=== PATIENT | male | born 1950 | race Hispanic/Latino ===

== ENCOUNTER 2017-06-24 11:39 | Emergency (ER) | payer MEDICARE ==
[~2017-06-24] VITALS: Ht 172.7 cm; Wt 125.6 kg
[2017-06-24] MEDS ORDERED: METFORMIN HCL500 MG PO (13:04)
[2017-06-24] MEDS ORDERED: METOPROLOL SUCC50 MG PO (13:04)
[2017-06-24] MEDS ORDERED: LISINOPRIL10 MG PO (13:05)
[2017-06-24] MEDS ORDERED: GABAPENTIN300 MG PO (13:06)
[2017-06-24] MEDS ORDERED: TAMSULOSIN HCL0.4 MG PO (13:07)
[2017-06-24] MEDS ORDERED: ATORVASTATIN CA20 MG PO (13:08)
[2017-06-24] MEDS ORDERED: GLIPIZIDE5 MG PO (13:09)
[2017-06-24 16:11] VITALS: BP 138/72
== END 2017-06-24 15:35 | disposition home or self-care (01) ==
LOC: FSED 11:39
DX: M54.5 Low back pain (principal); S39.012A Strain of muscle, fascia and tendon of lower back, initial encounter; M46.1 Sacroiliitis, not elsewhere classified; E11.40 Type 2 diabetes mellitus with diabetic neuropathy, unspecified; I10 Essential (primary) hypertension
CPT/HCPCS: 72100; 99283

== ENCOUNTER 2017-07-25 10:13 | Outpatient (RCR) | payer MEDICARE ==
[~2017-07-25 10:13] MED LIST: ATORVASTATIN CA20 MG PO; GABAPENTIN300 MG PO; GLIPIZIDE5 MG PO; LISINOPRIL10 MG PO; METFORMIN HCL500 MG PO; METOPROLOL SUCC50 MG PO; TAMSULOSIN HCL0.4 MG PO
== END 2017-08-19 ==
LOC: PT 10:13
PROVIDERS: ATTEND Specialist
DX: M47.816 Spondylosis without myelopathy or radiculopathy, lumbar region (principal); M16.12 Unilateral primary osteoarthritis, left hip; M17.12 Unilateral primary osteoarthritis, left knee
CPT/HCPCS: 97139 ×2; 97163; G8978; G8979

== ENCOUNTER 2017-09-03 16:59 | Outpatient (RCR) | payer MEDICARE | END 2017-09-19 | LOC: PT 16:59 | PROVIDERS: ATTEND Specialist | DX: M16.12 Unilateral primary osteoarthritis, left hip (principal); M17.12 Unilateral primary osteoarthritis, left knee; M54.5 Low back pain; M47.896 Other spondylosis, lumbar region; M25.552 Pain in left hip; M25.652 Stiffness of left hip, not elsewhere classified; M25.562 Pain in left knee; M25.662 Stiffness of left knee, not elsewhere classified; M62.81 Muscle weakness (generalized); R26.2 Difficulty in walking, not elsewhere classified | CPT/HCPCS: 97110 ×7; 97139; G8978; G8979 ==

== ENCOUNTER 2017-10-08 16:45 | Outpatient (RCR) | payer MEDICARE | END 2017-10-19 | LOC: PT 16:45 | PROVIDERS: ATTEND Specialist | DX: M54.5 Low back pain (principal); M25.552 Pain in left hip; M25.562 Pain in left knee; M25.652 Stiffness of left hip, not elsewhere classified; M25.662 Stiffness of left knee, not elsewhere classified | CPT/HCPCS: 97110 ×5; 97139; G8978 ×2; G8979 ×2 ==

== ENCOUNTER 2017-11-04 14:25 | Inpatient (IN) | payer MEDICARE ==
[~2017-11-04] VITALS: Ht 172.7 cm; Wt 122.5 kg
[2017-11-04 15:02] LABS: BASOPHILS % 0.3 % (0.0-1.0); EOSINOPHILS # (AUTO) 0.2 (0.0-0.4); EOSINOPHILS % 1.8 % (0.0-6.0); HEMOGLOBIN 12.9 g/dL (14.0-18.0); LYMPHOCYTES # (AUTO) 2.8 (1.0-3.2); LYMPHOCYTES % 31.5 % (18.0-39.1); MEAN CORPUSCULAR HEMOGLOBIN 30.8 pg (28-32); MEAN CORPUSCULAR HGB CONC 34.9 g/dL (31-35); MEAN CORPUSCULAR VOLUME 88.3 fL (81-99); MONOCYTES # (AUTO) 0.8 (0.2-0.8); MONOCYTES % 9.4 % (4.4-11.3); NEUTROPHILS # (AUTO) 5.1 (2.1-6.9); NEUTROPHILS % 56.7 % (38.7-80.0); PLATELET COUNT 227 x10e3/uL (140-360); RED BLOOD COUNT 4.19 x10e6/uL (4.3-5.7); RED CELL DISTRIBUTION WIDTH 12.8 % (11.7-14.4)
[2017-11-04 15:09] LABS: INR 1.04; PROTHROMBIN TIME 12.8 seconds (11.9-14.5)
[2017-11-04 15:10] LABS: PARTIAL THROMBOPLASTIN TIME 26.9 seconds (23.8-35.5)
[2017-11-04 15:16] LABS: ALANINE AMINOTRANSFERASE 37 IU/L (0-55); ALBUMIN 3.3 g/dL (3.5-5.0); ALBUMIN/GLOBULIN RATIO 0.9 (0.8-2.0); ALKALINE PHOSPHATASE 101 IU/L (40-150); ANION GAP 17.1 mmol/L (8-16); BLOOD UREA NITROGEN 30 mg/dL (7-26); BUN/CREATININE RATIO 25 (6-25); CALCIUM 9.4 mg/dL (8.4-10.2); CARBON DIOXIDE 23 mmol/L (22-29); CHLORIDE 104 mmol/L (98-107); CREATINE KINASE 221 IU/L (30-200); EST GLOMERULAR FILTRATION RATE > 60 ML/MIN (60-); GLUCOSE 213 mg/dL (74-118); POTASSIUM 5.1 mmol/L (3.5-5.1); SODIUM 139 mmol/L (136-145)
--- NOTE | 2017-11-04 17:07 | Diagnostic Imaging Report ---
History:Fall Comparison studies: None Technique: Axial images were obtained from the skull base to the vertex. Coronal and sagittal images reconstructed from the axial data. Intravenous contrast: None Findings: Scalp/skull: No abnormalities. Extra-axial spaces: No masses. No fluid collections. Brain sulci: Mildly prominent. Ventricles: Mild compensatory dilatation. No hydrocephalus. Parenchyma: Subtle hypodensities in the supratentorial white matter are small vessel ischemic changes. No masses, hemorrhage, acute or chronic cortical vascular insults. Sellar/suprasellar region: No abnormalities. Craniocervical junction: Patent foramen magnum. No Chiari one malformation. Incidental findings: Atherosclerotic calcifications in the carotid siphons . Impression: No acute abnormalities. Chronic findings: 1. Mild generalized volume loss. 2. Mild supratentorial white matter small vessel ischemic changes. Signed by: Dr. Arsalan Rojas M.D. on 11/04/2017 5:04 PM
--- NOTE | 2017-11-04 17:15 | Diagnostic Imaging Report ---
History:Fall Comparison studies: None Technique: Axial images were obtained through the maxillofacial region. Coronal and sagittal images reconstructed from the axial data. Intravenous contrast: None Findings: Soft tissues: And approximately 2.8 cm homogeneous, noncalcified, nonnecrotic right jugulodigastric lymph node is nonspecific and cannot be further evaluated on this noncontrast maxillofacial CT. No additional radiographically significant adenopathy. Bones: No fractures or bone abnormalities. Orbits: Globes: Intact Extra or intraconal abnormalities: None. Paranasal sinuses: Peripheral mucosal thickening in the maxillary sinuses. Otherwise clear Additional findings: Patient status post anterior cervical fusion from C3 through C5. Bone grafts are seen in the partially fused C3-4 and C4-5 disc spaces. Incidental periodontal disease, activity to be determined clinically IMPRESSION: 1. No acute maxillofacial abnormalities. 2. Specifically, no fractures. 3. Recommend a CT of the neck with contrast to adequately evaluate would appears to be an enlarged right jugulodigastric lymph node which measures 2.8 cm in transverse diameter. 4. Patient status post anterior cervical fusion from C3 to C5. Signed by: Dr. Arsalan Rojas M.D. on 11/04/2017 5:12 PM
[2017-11-04] MEDS ORDERED: ONDANSETRON HCL INJ 2 MG/ML VIAL IV PRN (19:00)
[2017-11-04] MEDS ORDERED: SODIUM CHLORIDE 0.9% 1000ML 1,000 ML ONE (19:11)
[2017-11-04] MEDS ORDERED: ASPIRIN 81 MG CHEW TAB PO ONE (19:15)
[2017-11-04] MEDS: SODIUM CHLORIDE 0.9% 1000ML 1,000 ML IV SCH (19:19)
--- NOTE | 2017-11-04 19:56 | History and Physical ---
CLINICAL HISTORY: This is a 67-year-old white man, a patient of Dr. Naveen Samaniego, seen in the emergency room at [facility] because of fall, syncope, persistent diplopia and vertigo. According to the patient, 3 years ago he had head trauma, fracturing his C-spine, requiring surgery at [facility]. Since that time, he has not been able to move his left arm properly. He attributes this to not having had any rehabilitation since he had no insurance at that time. Two years ago, he had an episode of sudden left-sided paralysis lasting for approximately 6 hours, spontaneously resolved. He did not go to the emergency room. One year ago, he had the same thing happen on the right side. This time, his grandson took him to [facility] where workup was negative. He was dismissed. He has never had syncope in the past. Five days ago, when he got out of bed in the morning, he suddenly became unconscious and hit the ground, having slight bruising of the left forehead. His grandson came to visit with him at 1 p.m. (5 hours later) and found him unconscious. After waking him up, he was able to walk properly. He did not go to the emergency room. However, he said since that time he has had diplopia and vertigo. No chest pains. No palpitations. Since his diplopia did not improve, he decided to come to the emergency room. PAST MEDICAL HISTORY: Remarkable for diabetes, hypertension, hyperlipidemia, benign prostatic hypertrophy. MEDICATIONS AT HOME: Include: 1. Atorvastatin 40 mg p.o. daily. 2. Gabapentin 300 mg p.o. t.i.d. 3. Glipizide 5 mg p.o. daily. 4. Lisinopril 10 mg p.o. daily. 5. Metformin 500 mg p.o. b.i.d. 6. Metoprolol succinate 50 mg p.o. daily. 7. Tamsulosin 0.4 mg p.o. daily. FAMILY HISTORY: Remarkable for father who had stomach cancer. Mother had end-stage renal disease. Brother had from motor vehicle accident. Another brother after back surgery and was in a wheelchair for years, possibly cardiac . PERSONAL AND SOCIAL HISTORY: He was a cigarette smoker since age 19. Stopped smoking approximately 15 years ago. He was a heavy alcohol user, started at age 19, drinking 1 case of beer per day, but stopped drinking approximately 15 years ago. 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 REVIEW OF SYSTEMS: Noncontributory. SURGERIES: Only the cervical spine. PHYSICAL EXAMINATION VITAL SIGNS: Blood pressure 115/67. Pulse is 87. Respirations 20. CARDIAC: Jugular veins are not distended. S1, S2 were regular with occasional ectopy. LUNGS: Clear. ABDOMEN: Soft. Bowel sounds are present. EXTREMITIES: No cyanosis, clubbing or edema. LABORATORY STUDIES: Electrocardiogram shows sinus rhythm, poor R-wave progression, cannot exclude old anterior wall myocardial infarction. The CT scan of the head showed volume loss, supratentorial white matter small vessel disease. CT of the face: No acute findings. There was lymph node present up to 2.8 cm in the right jugulodigastric area. White count 8000, hemoglobin 12.9, platelet count 227,000. Electrolytes are negative. BUN 30, creatinine 1.2. CK 221, CK-MB 11.5. Troponin is normal at 0.006. Albumin 3.3. INR is 1.04. IMPRESSION 1. Syncope of undetermined etiology. Consider cardiac arrhythmia since the patient does have premature ventricular contractions on monitoring. Consider seizure disorder. 2. Transient ischemic attack 2 years ago and 1 year ago. The first one with left-sided weakness, the 2nd one with right-sided weakness. Workup in the emergency room the 2nd time was negative. The 1st time was not worked up. 3. History of cervical spine fracture requiring surgery 3 years ago at [facility] with persistent left arm weakness or limitation. 4. Diplopia and vertigo. Consider 8th nerve and 6th nerve. 5. Abnormal electrocardiogram showing possible old anterior wall myocardial infarction. 6. Enlarged left neck lymph node. 7. Elevated creatine kinase and creatine kinase myocardial band but with normal troponin. 8. Diabetes. 9. Hypertension. 10. Hyperlipidemia. 11. Benign prostatic hypertrophy. 12. Neuropathy. RECOMMENDATIONS: Neurology consultation. MRI scan of cervical spine. MRI of the head. Consider CT of the head. Echocardiogram and Doppler scan of carotid. Future workup concerning his lymph nodes. May need EP study. This patient has history of heavy alcohol usage. Consider alcoholic cardiomyopathy. Job#: [id number] cc:MD KEVON SHIELDS MD
[2017-11-04 21:00] VITALS: BP 161/69
[2017-11-04] MEDS ORDERED: ATORVASTATIN 20 MG TAB PO PRN (21:00)
[2017-11-04] MEDS ORDERED: TRESIBA (23:20)
[2017-11-04] MEDS: GABAPENTIN 300 MG CAP PO SCH (23:24)
[2017-11-05] VITALS (9 sets, daily range): BP systolic 127–168; BP diastolic 61–73
[2017-11-05 00:56] LABS: CREATINE KINASE MB 9.5 ng/mL (0-5.0)
[2017-11-05] MEDS: SODIUM CHLORIDE 0.9% 1000ML 1,000 ML IV SCH ×3 (03:51→18:55)
[2017-11-05 04:35] LABS: BASOPHILS % 0.3 % (0.0-1.0); EOSINOPHILS # (AUTO) 0.3 (0.0-0.4); EOSINOPHILS % 3.6 % (0.0-6.0); HEMATOCRIT 35.4 % (38.2-49.6); HEMOGLOBIN 12.1 g/dL (14.0-18.0); LYMPHOCYTES # (AUTO) 3.5 (1.0-3.2); LYMPHOCYTES % 38.5 % (18.0-39.1); MEAN CORPUSCULAR HEMOGLOBIN 30.9 pg (28-32); MEAN CORPUSCULAR HGB CONC 34.2 g/dL (31-35); MEAN CORPUSCULAR VOLUME 90.5 fL (81-99); MONOCYTES # (AUTO) 0.8 (0.2-0.8); NEUTROPHILS # (AUTO) 4.4 (2.1-6.9); NEUTROPHILS % 48.4 % (38.7-80.0); PLATELET COUNT 196 x10e3/uL (140-360); RED BLOOD COUNT 3.91 x10e6/uL (4.3-5.7); RED CELL DISTRIBUTION WIDTH 12.8 % (11.7-14.4)
[2017-11-05 04:55] LABS: ANION GAP 12.7 mmol/L (8-16); BLOOD UREA NITROGEN 24 mg/dL (7-26); BUN/CREATININE RATIO 29 (6-25); CALCIUM 9.4 mg/dL (8.4-10.2); CARBON DIOXIDE 26 mmol/L (22-29); CHLORIDE 108 mmol/L (98-107); CHOL/HDL RATIO 4.3 (3.9-4.7); CHOLESTEROL 119 MD/DL (0-199); CREATININE, SERUM 0.84 mg/dL (0.72-1.25); EST GLOMERULAR FILTRATION RATE > 60 ML/MIN (60-); GLUCOSE 115 mg/dL (74-118); HDL CHOLESTEROL 28 MG/DL (40-60); LDL CHOLESTEROL 66 MG/DL (60-130); POTASSIUM 4.7 mmol/L (3.5-5.1); SODIUM 142 mmol/L (136-145); TRIGLYCERIDES 126 MG/DL (0-149)
--- NOTE | 2017-11-05 07:25 | Diagnostic Imaging Report ---
Exam: Intracranial CTA History : Syncope. Comparison studies:None Technique: Axial images were obtained from the skull base to the vertex. Coronal and sagittal images reconstructed from the axial data. Intravenous contrast: 100 cc of [id number] Findings: Internal carotid arteries: Calcified atherosclerosis in the bilateral cavernous and paraophthalmic segments with mild stenosis in the left cavernous and paraophthalmic segments. Middle cerebral arteries: Patent, no abnormalities in the M1 and M2 segments. Anterior cerebral arteries: Patent, no abnormalities in the A1 and A2 segments. Vertebral arteries: Patent, no abnormalities. Basilar artery: Patent, no abnormalities. Posterior cerebral arteries: Patent, no abnormalities. The PICA origins are not well visualized and may lie outside imaged [id number]. No aneurysm or vascular malformation identified. Anatomical variants: Anterior communicating artery :Not well visualized. Posterior communicating arteries: Nonvisualized. Vertebral arteries: Codominant. Incidental findings: Nonspecific inflammatory mucosal thickening in the right maxillary sinus. Periapical lucency at the underlying right first maxillary molar raises the possibility for odontogenic source of sinus inflammation. Additional periapical lucency at the right medial maxillary incisor. IMPRESSION: 1. Calcified atherosclerosis in the carotid siphons with mild stenosis in the left cavernous and paraophthalmic ICA segment. 2. No other intracranial arterial abnormalities. Signed by: Dr. Jose Ocampo M.D. on 11/05/2017 7:22 AM
[2017-11-05 08:08] LABS: CREATINE KINASE MB 11.9 ng/mL (0-5.0)
[2017-11-05] MEDS: METOPROLOL SUCCINATE 50 MG TAB XL PO SCH (08:40)
[2017-11-05] MEDS: GABAPENTIN 300 MG CAP PO SCH ×3 (08:40→21:16)
[2017-11-05] MEDS: ASPIRIN 81 MG ENTERIC COATED PO SCH (08:40)
[2017-11-05] MEDS: GLIPIZIDE 5 MG TAB PO SCH (08:40)
[2017-11-05] MEDS: METFORMIN HCL 500 MG TAB PO SCH ×2 (08:40→16:00)
[2017-11-05] MEDS: LISINOPRIL 10 MG TAB PO SCH (08:40)
[2017-11-05] MEDS: TAMSULOSIN HCL 0.4 MG CAP PO SCH (08:40)
[2017-11-05 10:11] LABS: % IRON SATURATION 34 % (15-50); IRON 103 ug/dL (65-175); TOTAL IRON BINDING CAPACITY 305 ug/dL (261-478); TRANSFERRIN 218 mg/dL (174-364)
--- NOTE | 2017-11-05 10:14 | Cardiology Report ---
DATE OF STUDY: November 05, 2017 ECHOCARDIOGRAM M-MODE: Top normal left atrial size. Mild left ventricular hypertrophy. Top normal aortic root size. Normal contractility. Ejection fraction is approximately 55%. Mitral, aortic and tricuspid valves grossly normal. There is no pericardial effusion. SECTOR SCAN: Top normal left atrial size. Borderline dilated aortic root measuring 3.8 cm. Left ventricular hypertrophy with ejection fraction of approximately 55%. No segmental wall motion abnormalities. No intracardiac thrombi or masses. Mitral annulus slightly thickened. Aortic valve is normal. Tricuspid valve is normal. There is no pericardial effusion. CARDIAC DOPPLER STUDY WITH COLOR: Trace mitral and tricuspid regurgitation. CONCLUSIONS 1. Top normal aortic root size measuring 3.8 cm with without aortic regurgitation. 2. No evidence of intracardiac thrombi or masses. 3. Left ventricular hypertrophy with ejection fraction of 55%. 4. Trace mitral regurgitation with sclerosis of mitral valve annulus and top normal left atrial size. 5. Trace tricuspid regurgitation. Job#: [id number] RI cc:FAIZA CEJA MD
--- NOTE | 2017-11-05 14:41 | Diagnostic Imaging Report ---
Exam: Brain MRI without IV contrast History: Syncope head CT 11/04/2017. Comparison studies: None Technique: Sagittal and axial T2 FS, axial DWI, axial T2*GRE, axial T1 FLAIR and axial coronal T2 FLAIR. Intravenous contrast: None Findings: Several pulse sequences are somewhat limited by artifacts related to patient motion. Scalp: Normal in signal. No masses. Bone marrow: Normal in signal intensity. Brain sulci: Comment prominent. Ventricles: Mild compensatory dilatation. No hydrocephalus. Extra axial spaces: No mass, no fluid collection. Parenchyma: Mass, hemorrhage or acute ischemia. A few scattered T2 FLAIR appearance foci in the supratentorial white matter are nonspecific most compatible with chronic microvascular ischemic changes. There is a small chronic cortical-subcortical insult in the left occipital lobe centered within the cuneus gyrus in the left [employer] territory. Suprasellar region: No abnormalities. Craniocervical junction: Patent foramen magnum. No Chiari malformation. Vessels: Normal flow-voids in the arteries and sinuses. Incidental findings: Mild inflammatory mucosal thickening in the right maxillary sinus. Mild nonspecific T2 hyperintense hyperintense reactive changes at the left greater than right mastoid tip. IMPRESSION: 1. No acute ischemia or other acute intracranial abnormalities. 2. Mild generalized volume loss. 3. Small chronic left occipital insult. 4. Mild chronic microvascular ischemic changes. Signed by: Dr. Jose Ocampo M.D. on 11/05/2017 2:38 PM
--- NOTE | 2017-11-05 17:47 | Diagnostic Imaging Report ---
History: Syncope Comparison studies: None Technique: Sagittal T1, T2 and IR, axial T2 and axial gradient echo Intravenous contrast: None Findings: Study is slightly suboptimal due to motion artifacts. In spite of the motion artifacts: Alignment: Normal lordosis. No scoliosis. Cervicomedullary junction: No abnormalities. Patent foramen magnum. Soft tissues: No T2 hyperintense inflammatory changes. 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 Spinal cord: Normal in size and signal from the foramen magnum through C2-C3. Increased T2 signal in the dorsal and lateral aspects of the mildly atrophic cord from C3 through C6, due to the degenerative changes described below, are consistent with chronic gliosis. Postsurgical changes: Patient status post anterior cervical fusion from C3 to C5. Bone grafts are in place in both disc spaces but this is better visualized on the maxillofacial CT on 11/04/2017. Vertebrae: Normal in height and signal intensity. No fractures, infection or neoplasm. Degenerative changes: C2-C3: Mildly degenerated disc. Mild bilateral foraminal stenosis due to facet and uncovertebral arthrosis. A disc osteophyte complex flattens the cord and result in mild spinal canal stenosis. No disc herniation C3-C4: The disc is partially fused Mild bilateral foraminal stenosis due to facet and uncovertebral arthrosis. A disc osteophyte complex flattening the spinal cord and results in moderate spinal canal stenosis. T2 hyperintense foci in the dorsal cord are consistent with chronic gliosis. No disc herniation. C4-C5: The disc is partially fused Moderate bilateral foraminal stenosis is due to uncoarthrosis. A disc osteophyte complex flattens the spinal cord and results in mild spinal canal stenosis. T2 hyperintense foci in the dorsal aspect of the cord are consistent with gliosis. No disc herniation C5-C6: Mildly degenerated disc. Moderate bilateral foraminal stenosis due to facet and uncovertebral arthrosis. Severe spinal canal stenosis due to a disc osteophyte complex. T2 hyperintense foci in the dorsal and lateral cord are consistent with stenosis. No disc herniation. C6-C7: Mildly degenerated disc. Mild spinal canal stenosis due to a disc osteophyte complex. Mild left foraminal stenosis at due to uncoarthrosis. Patent right foramen C7-T1: Mildly degenerated disc. Moderate bilateral facet arthrosis. Patent spinal canal and foramina. IMPRESSION: 1. Patient status post anterior cervical fusion from C3 to C6. Hardware in place. Bone graft in the intervening disc spaces are better visualized on the maxillofacial CT on 11/04/2017. 2. Degenerative spinal canal stenosis is moderate at C3-4, mild at C4-5 but severe at C5-6. Increased T2 signal in the dorsolateral aspect of the mildly atrophic cord are consistent with chronic gliosis. 3. Foraminal stenosis from C2 -C7 is worst bilaterally at C4-5 and C5-6 due to facet and uncovertebral arthrosis. 4. No disc herniations. Signed by: Dr. Arsalan Rojas M.D. on 11/05/2017 5:43 PM
[2017-11-05 18:19] LABS: CREATINE KINASE MB 14.2 ng/mL (0-5.0)
[2017-11-05] MEDS ORDERED: SODIUM CHLORIDE 0.9% 50ML 50 ML ONE (22:37)
[2017-11-05] MEDS ORDERED: IOPAMIDOL 370 MG/ML 200 ML INFUS..BTL INJ ONE (22:37)
[2017-11-06] VITALS (8 sets, daily range): BP systolic 124–143; BP diastolic 60–78
[2017-11-06] MEDS: SODIUM CHLORIDE 0.9% 1000ML 1,000 ML IV SCH ×3 (02:55→17:51)
[2017-11-06] MEDS: MUPIROCIN 2% OINT 22 GM TUBE TOP SCH (09:00)
[2017-11-06] MEDS: TAMSULOSIN HCL 0.4 MG CAP PO SCH (09:16)
[2017-11-06] MEDS: METFORMIN HCL 500 MG TAB PO SCH ×2 (09:16→16:52)
[2017-11-06] MEDS: GLIPIZIDE 5 MG TAB PO SCH (09:16)
[2017-11-06] MEDS: ASPIRIN 81 MG ENTERIC COATED PO SCH (09:16)
[2017-11-06] MEDS: GABAPENTIN 300 MG CAP PO SCH ×3 (09:16→21:29)
[2017-11-06] MEDS: LISINOPRIL 10 MG TAB PO SCH (09:16)
[2017-11-06] MEDS: METOPROLOL SUCCINATE 50 MG TAB XL PO SCH (09:17)
--- NOTE | 2017-11-06 09:56 | Consultation ---
DATE OF CONSULTATION: November 04, 2017 NEUROLOGY CONSULTATION HISTORY OF PRESENT ILLNESS: Mr. Ma is a 67-year-old ghuqc-kjyq-lrelfpec man with past medical history significant for hypertension, hyperlipidemia, diabetes mellitus type 2, and a previously undiagnosed left occipital stroke, admitted to [facility] on November 04, 2017, with multiple symptoms. Approximately one week prior to admission, the patient awoke at approximately 0730. As he was standing from his bed, he abruptly lost consciousness and fell to the floor. Prior to the fall, Mr. Ma does not report chest pain or tightness, an irregular heartbeat, shortness of breath, or dizziness. Mr. Ma's next memory is of his grandson waking him and helping him to stand at approximately 1330 later the same day. When he regained consciousness, the patient was not aware of any bruises or abrasions. His muscles did not ache. He does endorse a headache. He does not report tongue biting, bladder/bowel incontinence, confusion, or tiredness after the fall. Shortly after the fall, the patient noted dizziness, which is further described as a spinning sensation. This spinning sensation occurs intermittently and lasts for approximately 60 to 90 seconds. The vertiginous sensation is exacerbated by turning his head in either direction. There is no nausea, vomiting, or other symptoms associated with the dizziness. Shortly after the fall, Mr. Ma noted binocular diplopia which is constant. Lastly, he noticed a headache which is further described as a generalized mild aching pain. Mr. Ma waited several days before presenting to the emergency center at [facility] to see if his symptoms would improve. Mr. Ma reports his dizziness is mildly improved. His headaches are moderately improved. The diplopia is unchanged. The patient does not endorse a prior stroke. He does not report a personal history of febrile seizures or other seizures. There is no known family history of seizures. Mr. Ma does not endorse prior head trauma or central nervous system infection. After his symptoms persisted for approximately 1 week, the patient presented to the Emergency Center at [facility] on the afternoon of November 04, 2017, for further evaluation. Upon arrival in the emergency center, the patient was afebrile with a blood pressure of 115/67 mmHg and a pulse of 87 beats per minute. His neurological examination was documented as being nonfocal. A CT of the brain without contrast was performed and did not show evidence of recent large territorial ischemia or hemorrhage. Mr. Ma was admitted to [facility] under observation status for further evaluation and treatment. REVIEW OF SYSTEMS: Vertigo, binocular diplopia, headache, status post fall. Otherwise, the 12-point review of systems is negative. PAST MEDICAL HISTORY: Hypertension, hyperlipidemia, diabetes mellitus type 2. PAST SURGICAL HISTORY: Cardiac catheterization, surgical repair of cervical fracture (4 levels). PAST HOSPITALIZATIONS: Surgeries/procedures as listed, chest pain. FAMILY HISTORY: The patient's paternal and maternal grandparents are . Their medical histories are unknown. The patient's father is from stomach cancer. He had a history of diabetes mellitus as well. Mr. Ma's mother is from end-stage renal disease. She had a history of diabetes mellitus as well. Mr. Ma has five sisters, all of whom are living. One sister has diabetes mellitus. A second sister has Parkinson's disease. The remaining three sisters are alcoholics. Mr. Ma has one brother who is from a motor vehicle accident. A second brother is from complications of hypertension and diabetes mellitus. A third brother is alive. He has end-stage renal disease and is on hemodialysis. Mr. Ma has five children, all of whom are living. Both of his sons have diabetes mellitus. One daughter has diabetes mellitus. The remaining two daughters are healthy. SOCIAL HISTORY: Mr. Ma is . He completed school through the 10th grade, then later obtained his GED. The patient does endorse a prior history of tobacco use, but quit smoking cigarettes approximately 15 years ago. He does not report current or prior alcohol or recreational drug use. HOME MEDICATIONS 1. Atorvastatin 40 mg by mouth at bedtime daily. 2. Gabapentin 300 mg by mouth three times daily. 3. Glipizide 5 mg by mouth daily. 4. Lisinopril 20 mg by mouth daily. 5. Metformin 1000 mg by mouth twice daily. 6. Metoprolol 50 mg by mouth daily. 7. Tamsulosin 0.4 mg by mouth daily. 8. Tresiba 80 units at bedtime daily. ALLERGIES: NO KNOWN DRUG ALLERGIES. NO KNOWN FOOD ALLERGIES. NO KNOWN ALLERGIES TO LATEX. NO KNOWN ALLERGIES TO IODINE OR OTHER CONTRAST MATERIALS. PHYSICAL EXAMINATION VITAL SIGNS: Height 68 inches, weight 266 pounds, BMI 40.5 kg per meter squared. Blood pressure 135/66 mmHg. Pulse 70 beats per minute. Respiratory rate 18 breaths per minute. Oxygen saturation 98% on room air. GENERAL: The patient is awake and alert, mildly distressed secondary to diplopia. Morbidly obese. HEENT: Normocephalic, atraumatic. Pupils are pinpoint. Moist mucous membranes. NECK: Supple. No appreciable thyromegaly. No appreciable carotid bruits. CARDIOVASCULAR: S1, S2, regular rate and rhythm. No murmurs, rubs, or gallops. RESPIRATORY: Clear to auscultation bilaterally. No wheezes, rhonchi, or rales. EXTREMITIES: The skin is warm and dry. No clubbing, cyanosis, or edema. The posterior tibial and dorsalis pedis pulses are 1+ and symmetric. There is limited range of motion of the right shoulder. SKIN: Venostasis ulcerations over the forelegs. NEUROLOGIC EXAMINATION MEMORY/ATTENTION: The patient is awake and alert, oriented to person, place, time, and situation. CRANIAL NERVES: Cranial nerve I--not tested. Cranial nerves II, III, IV, and --pupils are pinpoint. Extraocular movements are intact except as follows: Partial left cranial nerve palsy resulting in very mild esotropia of the left eye at rest. No nystagmus. Cranial nerve V--sensation to light touch and pinprick is diminished in a non anatomical distribution. Strength of the temporalis and masseter muscles is within normal limits. Cranial nerve VII--the face is symmetric as are all facial movements. Strength is within normal limits. Cranial nerve VIII--hearing is diminished to finger rub bilaterally. Cranial nerves IX, X--the soft palate elevates equally and symmetrically. Cranial nerve XI--normal strength of the bilateral sternocleidomastoid and trapezius muscles. Cranial nerve XII--the tongue protrudes midline and moves symmetrically from side to side. STRENGTH: Bulk is normal. Strength is 5/5 in the bilateral deltoids, biceps, triceps, wrist flexors and extensors, finger flexors and extensors, intrinsic hand muscles, hip flexors, knee flexors and extensors, ankle dorsiflexion and plantarflexion, and intrinsic foot muscles. Tone is normal. DTRs: Deep tendon reflexes are 1+ and symmetric at the triceps, biceps, and brachioradialis. Deep tendon reflexes are absent and symmetric at the patellas and Achilles. Plantar responses are flexor bilaterally. SENSATION: Sensation is intact to light touch and pinprick in both arms and both legs. CEREBELLAR: Fgrttc-awwe-uduzsi and heel-ellis movements are intact without dysmetria or other impairment. GAIT: Gait deferred. SPEECH: Spontaneous speech is normal without appreciable dysarthria or aphasia. Repetition is intact. INVOLUNTARY MOVEMENTS: None. PRONATOR DRIFT: None. LABORATORY DATA: Sodium 142, potassium 4.7, chloride 108, carbon dioxide 26, anion gap 12.7, BUN 24, creatinine 0.84, estimated GFR greater than 60. BUN to creatinine ratio 29. Glucose 115, calcium 9.4. From November 04, 2017, total bilirubin 0.3, AST 33, ALT 37, alkaline phosphatase 101, total protein 6.9, albumin 3.3, globulin 3.6, albumin to globulin ratio 0.9. Creatinine kinase 221, 239, 360. CK-MB 11.50, 9.50, 11.90. Troponin I 0.006, 0.009, and 0.015. Iron 103, TIBC 305, percent saturation 34, transferrin 218. Total cholesterol 119, triglycerides 126, LDL cholesterol 66, HDL cholesterol 28. The CBC with differential and platelets reveals a white blood cell count of 9.10 with a normal differential. The hemoglobin and hematocrit are 12.1 and 35.4, respectively. The platelet count is 196. PT 12.8, INR 1.04, PTT 26.9. DIAGNOSTIC STUDIES 1. EKG 11/04/2017: Normal sinus rhythm at 89 beats per minute. 2. Face CT 11/04/2017 1. No acute maxillofacial abnormalities. 2. Specifically, no fractures. 3. Recommended CT of the neck with contrast to adequately evaluate what appears to be an enlarged right jugulodigastric lymph node which measures 2.8 cm in transverse diameter. 4. Patient is status post anterior cervical fusion from C3 to C5. 5. CT of the brain without contrast 11/04/2017: On my review, there is no evidence of recent large territorial ischemia, hemorrhage, mass, or mass effect. There is mild diffuse cerebral atrophy. There are findings compatible with mild to moderate chronic small vessel ischemic disease. 6. MRI of the brain without contrast 11/05/2017: On my review, there is no evidence of recent large territorial ischemia, hemorrhage, mass, or mass effect. There is a small chronic left occipital stroke with cortical involvement. There is mild diffuse cerebral atrophy. There are scattered nonspecific T2/flair hyperintensities in the deep white matter compatible with mild chronic small vessel ischemic disease. 7. Echocardiogram 11/05/2017: Ejection fraction 50% to 55%. Concentric left ventricular hypertrophy. Left atrial enlargement. Trace mitral and tricuspid regurgitation. The mitral valve is thickened. 8. Bilateral carotid artery ultrasound with Doppler 11/05/2017: There is no significant atherosclerosis in either carotid system. There does not appear to be any blood flow of the right vertebral artery. 9. CTA of the head 11/05/2017: Calcified atherosclerosis in the carotid siphons with mild stenosis in the left cavernous and paraophthalmic ICA segment. No other intracranial arterial abnormalities. Specifically, there is blood flow seen in both vertebral arteries. ASSESSMENT AND PLAN: Mr. Ma is a 67-year-old ohwrr-vefy-irewrofy man with multiple vascular risk factors admitted to [facility] on November 04, 2017, with multiple symptoms as described in the history of present illness. The patient's neurological examination is significant for a partial left cranial nerve palsy resulting in very mild esotropia of the left eye at rest. Otherwise, his neurological examination is nonfocal. Patient's laboratory data and other diagnostic studies have been reviewed and are documented above. The greatest concern regarding this patient is the etiology of his loss of consciousness and subsequent amnesia over a period of approximately 5 hours. It is possible the patient experienced a syncopal event and hit his head as he fell to the floor. There may be loss of consciousness of variable duration seen with a concussion. The occurrence of a concussion may account for the patient's persistent symptoms of intermittent vertigo and headaches as these are common symptoms of postconcussion syndrome. Another possibility is the patient experienced a generalized tonic-clonic seizure. The postictal phase of a seizure may be characterized by severe tiredness and confusion. A person may sleep for several hours following a seizure. This person would not having memory for the time immediately following the seizure as well. As detailed in the neurological examination, Mr. Ma has a partial left cranial nerve palsy, probably secondary to diabetes mellitus. This is the probable etiology of his binocular diplopia. RECOMMENDATIONS 1. Routine EEG to evaluate for abnormal electrocortical activity. 2. A hemoglobin A1c will be ordered to determine how well controlled the patient's diabetes is at present. 3. Defer treatment of the remaining medical comorbidities to the primary and other services following this patient. Thank you for this consultation. I will continue to follow this patient while he remains in the hospital. TIME SPENT: 70 minutes. Job#: [id number] ALEXANDRO BERNSTEIN
--- NOTE | 2017-11-06 10:53 | Cardiology Report ---
DATE OF STUDY: DOPPLER SCAN OF CAROTIDS Left carotid artery shows normal velocity with left vertebral flow in the normal direction. Right carotid artery shows nonvisualized right vertebral artery. CONCLUSION 1. Nonvisualized right vertebral artery consistent with occlusion. 2. No high-grade stenosis elsewhere detected bilaterally. 3. Left vertebral flow appears to be in normal direction. Job#: [id number] RI cc:MD KEVON SHIELDS MD
[2017-11-06] MEDS: MORPHINE SULFATE 2 MG/ML SYR IV PRN ×3 (13:15→23:02)
--- NOTE | 2017-11-06 17:06 | Consultation ---
DATE OF CONSULTATION: November 06, 2017 REASON FOR CONSULTATION: Cervical spinal stenosis. The patient is a 67-year-old man who underwent C3-4 and C4-5 anterior cervical diskectomy and fusion by another surgeon in [facility] about 2 years ago for treatment of severe cervical cord compression. Apparently he did not have insurance at that time and did not have any postoperative rehabilitation. He has continued to have a significant gait disturbance, which has become substantially worse over the past 6 months. He has resorted to using a walker for the past 6 months and falls frequently. He has previously attributed this problem to bilateral hip osteoarthritis. About a month ago, he had some physical therapy without much benefit. He recently fell again and was brought the emergency room and underwent a thorough evaluation of his cardiac and neurological status, which included an MRI of the brain and the cervical spine. His brain MRI is okay. The cervical spine MRI reveals evidence of previous decompression at C3-4 and C4-5 with evidence of chronic cord injury and myelomalacia and cord atrophy in that region. In addition, the patient has severe spinal stenosis with flattening of the cord at C5-6 below the level of his previous fusion. He also has mild to moderate stenosis at C2-3 above the level of his previous fusion. PHYSICAL EXAMINATION: The patient is alert and oriented times 3. Cranial nerves are intact. Motor strength is full and symmetric in the upper extremities except for bilateral hot braider weakness noted as 4/5. He is able to stand and walk a few steps with his walker, visibly weaker on the right leg than the left leg. Motor tone is increased in the lower extremities, but deep tendon reflexes are absent throughout, likely due to his diabetes mellitus. Plantar responses are equivocal on the right and flexor on the left. IMPRESSION: Severe spinal stenosis with myelopathy at C5-6 below the level of previous C3-5 fusion where he has myelomalacia. I recommend C5-6 anterior cervical diskectomy, allograft fusion and plating. During that operation, I will explore his previous fusion and may remove his previous plate. The risks and benefits of surgery were explained to the patient in great detail. Specifically, I told him that the main reason for the surgery is to halt his continuing deterioration. At this point, it is unclear how much of his lost motor function and balance he will regain because of the existing myelomalacia in the cord. He understands and accepts this. The risks of infection, bleeding, spinal cord injury, cervical spine fluid leakage, graft nonfusion, hardware failure, recurrent laryngeal nerve palsy and persistent pain, numbness and weakness were explained. He fully understands all these issues and gives informed consent to proceed with surgery. Job#: [id number]
--- NOTE | 2017-11-06 17:26 | Diagnostic Imaging Report ---
Cervical Spine, 3 views HISTORY: Pain. Syncope. COMPARISON: MR cervical spine 11/05/2017. FINDINGS: Limited sensitivity for detection of subtle fractures and ligamentous abnormalities. On the lateral view, the cervical spine is visualized from the skull base to C6. The alignment is normal. Anterior plate and screw fixation from C3, C4, C5 with intervertebral disc prosthesis. No acute displaced fracture involving the visualized cervical spine. Disc Spaces and Uncovertebral Joints: Mild disc space narrowing at C5-C6. Facets: Diffuse mild facet arthrosis. IMPRESSION: 1. Stable anterior fusion from C3 through C5. 2. Mild degenerative changes at C5-C6. Signed by: Dr. Rashaun Guillermo M.D. on 11/06/2017 5:22 PM
--- NOTE | 2017-11-06 18:49 | Diagnostic Imaging Report ---
History: Assess fusion Comparison studies: None Technique: Axial images were obtained through the cervical region from the skull base to inferior C7 Coronal and sagittal images reconstructed from the axial data.. Intravenous contrast: None Findings: Fractures: None. Soft tissues: No gross abnormalities. Atlantoaxial articulation: Intact. Alignment: Normal lordosis. No scoliosis. Cervicomedullary junction: No abnormalities. The foramen magnum is patent. Postsurgical changes. Patient status post anterior cervical fusion from C3 to C5. Bone graft are in place in the intervening vertebral bodies. The disc spaces are still visualized. Vertebrae: No infection or neoplasm. Degenerative changes: Mildly degenerated discs at C2-3, C5-6 and C6-7. Degenerative spinal canal stenosis is better evaluated on the cervical spine MRI. Foraminal stenosis from C2 -C7 is worst on the right at C4-5 to facet and uncovertebral arthrosis. Moderate bilateral facet arthrosis at from C2 to T1. IMPRESSION: 1. No acute abnormalities. 2. Patient status post anterior cervical fusion from C3 to C5. Hardware in place. No loosening or failure. 3. Cannot adequately evaluate the spinal canal due to artifacts. Refer to the MRI on 11/05/2017. 4. Degenerative foraminal stenosis from C2 to C7 is worse on the right at C4-5. Signed by: Dr. Arsalan Rojas M.D. on 11/06/2017 6:46 PM
[2017-11-06] MEDS ORDERED: IOPAMIDOL 370 MG/ML 200 ML INFUS..BTL INJ ONE (20:29)
[2017-11-06] MEDS ORDERED: SODIUM CHLORIDE 0.9% 100 ML 100 ML ONE (20:29)
--- NOTE | 2017-11-06 23:13 | Diagnostic Imaging Report ---
Examination: Cervical CT Angiogram with Contrast Clinical indication:Focal right vertebral artery pain; weakness. Syncope. Comparison studies:Intracranial CTA performed November 05, 2017 Technique: Axial images were obtained from the thoracic inlet. Coronal and sagittal images reconstructed from the axial data. Intravenous contrast: 100 cc of Isovue-370. Computer generated maximum intensity projection images were performed of the bilateral carotid bifurcations and the aortic arch with bilateral common carotid and cervical internal carotid arteries on a separate workstation. Degree of stenosis at the carotid bulbs, if present, will be calculated using NASCET criteria where the smallest diameter at the location of stenosis is compared to the diameter of the more distal non-diseased vessel lumen. Findings: Aortic arch and major vessels: Patent. Nonstenotic atherosclerotic calcification. Common carotid arteries: Patent Cervical carotid bifurcations: Right: Patent. Left :Patent. Nonstenotic atherosclerotic calcification. Internal carotid arteries: Right: Patent. Left: Patent. Nonstenotic atherosclerotic calcification of the proximal cervical segment. Vertebral arteries: Pain. Nonstenotic atherosclerotic calcification of the bilateral distal V1 segments. Additional findings: Prior anterior discectomy and fusion from C3 through C5. IMPRESSION: 1. No arterial stenosis or occlusion or vascular malformation. 2. Nonstenotic atherosclerotic calcification, as detailed above. Signed by: Dr. Nandini Chatterjee M.D. on 11/06/2017 11:10 PM
[2017-11-07] VITALS (8 sets, daily range): BP systolic 151–191; BP diastolic 59–84
[2017-11-07] MEDS: SODIUM CHLORIDE 0.9% 1000ML 1,000 ML IV SCH ×3 (03:53→14:00)
[2017-11-07] MEDS: MORPHINE SULFATE 2 MG/ML SYR IV PRN ×2 (04:13→19:49)
[2017-11-07] MEDS: MUPIROCIN 2% OINT 22 GM TUBE TOP SCH (04:13)
[2017-11-07] MEDS ORDERED: BUPIVACAINE 0.5%/EPI 30 ML SDV INJ ONE (06:49)
[2017-11-07] MEDS ORDERED: BACITRACIN 50,000 UNIT VIAL ONE (06:49)
[2017-11-07] MEDS ORDERED: THROMBIN FOR SOLN 5,000 UNIT VIAL ONE (06:49)
[2017-11-07] MEDS ORDERED: GELATIN SPONGE SZ 100 ONE (06:49)
[2017-11-07] MEDS ORDERED: ACETAMINOPHEN 1000 MG/100 ML 100 ML IV ONE (06:56)
[2017-11-07] MEDS ORDERED: LIDOCAINE HCL (LTA) 4 ML SOLN ONE (06:57)
[2017-11-07] MEDS: GLIPIZIDE 5 MG TAB PO SCH (08:00)
[2017-11-07] MEDS: METFORMIN HCL 500 MG TAB PO SCH ×2 (08:00→17:00)
[2017-11-07] MEDS: GABAPENTIN 300 MG CAP PO SCH ×3 (09:00→20:34)
[2017-11-07] MEDS: TAMSULOSIN HCL 0.4 MG CAP PO SCH (09:00)
[2017-11-07] MEDS: LISINOPRIL 10 MG TAB PO SCH ×2 (09:00→14:00)
[2017-11-07] MEDS: METOPROLOL SUCCINATE 50 MG TAB XL PO SCH ×2 (09:00→14:00)
[2017-11-07] MEDS ORDERED: CEFAZOLIN SOD 2 GM in WATER STERILE 10ML VIAL 10 ML IV SCH (09:30)
[2017-11-07] MEDS ORDERED: CEFAZOLIN SOD 2 GM/D5W 50ML 50 ML IV NR (09:30)
[2017-11-07] MEDS: LACTATED RINGER'S 1,000 ML IV SCH ×2 (11:49→20:34)
[2017-11-07] MEDS ORDERED: ACETAMINOPHEN 325 MG TAB PO PRN (12:00)
[2017-11-07] MEDS ORDERED: MORPHINE SULFATE 5 MG/ML VIAL IM PRN (12:00)
[2017-11-07] MEDS ORDERED: MAGNESIUM/ALUMINUM/SIMETHICONE 30 ML UDC PO PRN (12:00)
[2017-11-07] MEDS ORDERED: HYDROMORPHONE 2MG/ML 2 MG/ML ML IV PRN (12:00)
[2017-11-07] MEDS ORDERED: CEPACOL SORE THROAT LOZENGES PO PRN (12:00)
[2017-11-07] MEDS ORDERED: ONDANSETRON HCL INJ 2 MG/ML VIAL IV PRN (12:00)
[2017-11-07] MEDS ORDERED: PROMETHAZINE HCL (IM) 25 MG/ML VIAL IM PRN (12:00)
[2017-11-07] MEDS ORDERED: ZOLPIDEM TARTRATE 5 MG TAB PO PRN (12:00)
[2017-11-07] MEDS ORDERED: FENTANYL CITRATE/PF 100MCG/2 ML INJ ONE (12:20)
[2017-11-07] MEDS ORDERED: MORPHINE SULFATE 2 MG/ML SYR ONE (13:11)
[2017-11-07] MEDS ORDERED: CEFAZOLIN SOD 1 GM/D5W 50ML 50 ML IV SCH (14:00)
--- NOTE | 2017-11-07 16:03 | Operative Report ---
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 PROCEDURES: 1. C5-6 anterior cervical diskectomy and microsurgical osteophyte resection and allograft fusion, 63450. 2. Preparation of MTF cortical cancellous allograft, 87301. 3. C5-6 anterior cervical plating with Synthes ZP endplate, 82300. ANESTHESIA: General. INDICATIONS: Patient is a 67-year-old man who has previously undergone C3-4 and C4-5 anterior cervical decompression, fusion and plating several years ago by another surgeon for treatment of severe cervical myelopathy. He has been left with myelomalacia and a chronic gait disturbance, which has been getting worse over the past 6 months with frequent falling. MRI reveals development of severe spinal stenosis due to disk herniation and spondylolisthesis at C5-6 below the level of his previous fusion. He was taken to the operating room for decompression and fusion of the C5-6 segment. PROCEDURE IN DETAIL: After induction of general anesthesia, the patient was placed on the operating table in supine position. The right side of the neck was prepped and draped in sterile fashion. The fluoroscopic C-arm was positioned in cross-table lateral orientation. A transverse incision was created on right side of the neck, superimposed on the C5-6 disk space as determined by fluoroscopy. The platysma was divided in line with the incision. A subplatysmal dissection was carried out and avascular plane of dissection was developed medial to the sternocleidomastoid muscle and was followed medial to the carotid sheath to the anterior border of the cervical spine. The deep cervical fascia was opened. The esophagus was retracted to the left. The scar layer overlying the inferior aspect of the previous anterior cervical plate was resected. The attachments of longus colli muscles to the anterolateral aspects of vertebral bodies of C5 and C6 were divided in line. The anterior osteophyte was resected. [place] posts were inserted into C5 and C6 and the [place] distractor was used to distract the disk space. It was possible to place in a [place] post in C5 just below the previous plate and it was not necessary to remove the plate or any of the screws. After distraction of the disk space, the annulus of the disk was incised with a #11 blade and the contents of the disk were thoroughly evacuated with angled curettes and pituitary rongeurs. The posterior osteophytes were meticulously drilled with a 2 mm cutting bur on a high-speed drill until they were completely removed. The posterior annulus of the disk, significant amount of herniated disk material, and the posterior longitudinal ligament were resected layer by layer until the dura was fully exposed and decompressed. The medial aspects of uncinate processes were resected bilaterally to further expose and decompress the origins of the corresponding nerve roots. After the satisfactory decompression had been achieved, the endplates were prepared for fusion. A piece of MTF cortical cancellous allograft was selected measuring 9 mm in thickness and prepared in saline and loaded onto a Synthes ZP endplate. The construct was then inserted into the C5-6 disk space under distraction and fluoroscopic guidance and tamped in place until the anterior margins of the plate were flushed with the anterior margin of vertebral bodies. The plate was then secured to the endplates of C5 and C6 with 2 pairs of 16 mm screws. All screws were locked and excellent construct was obtained. The wound was copiously irrigated with bacitracin solution. Meticulous hemostasis was secured. Retractor was removed. The platysma was closed with 3-0 Vicryl sutures, the skin was closed with 4-0 Monocryl sutures in a subcuticular fashion. Steri-Strips and dressing were applied. The patient was awakened, extubated and taken to postanesthesia care unit in stable condition. No intraoperative complications were encountered. Estimated blood loss was 20 mL. Job#: [id number] SUB
[2017-11-07] MEDS: CEFAZOLIN SOD 1 GM VIAL IV SCH (17:00)
[2017-11-07] MEDS: CARISOPRODOL 350 MG TAB PO PRN (17:33)
[2017-11-07] MEDS: OXYCODONE/ACETAMINOPHEN 5-325 1 EACH TABLET PO PRN (17:33)
--- NOTE | 2017-11-07 18:17 | Electroencephalogram ---
DATE OF STUDY: November 06, 2017 PROCEDURE: Electroencephalogram. REQUESTING PHYSICIAN: Dr. Katharine Kasper PATIENT HISTORY: This 67-year-old man with a history of syncope versus seizure is having an EEG for evaluation of epileptiform activity. The patient is not taking any medications that might affect the EEG. TECHNIQUE: This is a routine, portable EEG, recorded digitally, using the international 10/20 electrode placement system, and done in the inpatient setting with the patient awake. The EEG is technically limited because of muscle and electrical artifact. INTERPRETATION: This EEG cannot be interpreted due to the presence of excessive electrical artifact. A repeat EEG will be ordered. Job#: [id number] GH DAY
--- NOTE | 2017-11-07 18:19 | Electroencephalogram ---
DATE OF STUDY: November 07, 2017 ELECTROENCEPHALOGRAM REQUESTING PHYSICIAN: Dr. Katharine Kasper. PATIENT HISTORY: This 67-year-old man with a history of syncope versus seizure is having an EEG for evaluation of epileptiform activity. The patient is not taking any medications that might affect the EEG. TECHNIQUE: This is a routine, portable EEG, recorded digitally, using international 10/20 electrode placement system, and done in the inpatient setting with the patient awake and drowsy. The EEG is adequate for interpretation. DESCRIPTION: Well organized, well sustained 8-9 Hz activity is best seen symmetrically in the posterior head regions. No focal or epileptiform activity is recorded. Sleep is not recorded. Photic stimulation does produce a driving response. Hypoventilation is not performed. INTERPRETATION: This EEG is normal with the patient awake and drowsy. No epileptiform discharges are seen. Job#: [id number] DG MTDD
[2017-11-07] MEDS ORDERED: LIDOCAINE HCL 2% LOCAL INJ 5 ML SDV VIAL INJ ONE (19:19)
[2017-11-07] MEDS ORDERED: DEXAMETHASONE SOD PHOS INJ 4 MG/ML VIAL ONE (19:19)
[2017-11-07] MEDS ORDERED: NEOSTIGMINE 5 MG/5ML SYR ONE (19:19)
[2017-11-07] MEDS ORDERED: SEVOFLURANE INHAL SOLN 250 ML PEN BTL ONE (19:19)
[2017-11-07] MEDS ORDERED: GLYCOPYRROLATE INJ 1MG/ 5 ML SYR ONE (19:19)
[2017-11-07] MEDS ORDERED: PROPOFOL IV EMULSION 10 MG/ML 20 ML VIAL ONE (19:19)
[2017-11-07] MEDS ORDERED: ONDANSETRON HCL INJ 2 MG/ML VIAL ONE (19:19)
[2017-11-07] MEDS ORDERED: LIDOCAINE HCL 2% JELLY 5 ML TUBE ONE (19:19)
[2017-11-07] MEDS ORDERED: ATORVASTATIN 40 MG TAB PO SCH (21:00)
[2017-11-08] VITALS: BP 108/66
[2017-11-08] MEDS: CEFAZOLIN SOD 1 GM VIAL IV SCH ×2 (02:25→08:21)
[2017-11-08] MEDS: SODIUM CHLORIDE 0.9% 1000ML 1,000 ML IV SCH ×2 (02:55→10:21)
[2017-11-08 04:00] VITALS: BP 148/67
[2017-11-08] MEDS: LACTATED RINGER'S 1,000 ML IV SCH (04:29)
--- NOTE | 2017-11-08 06:46 | Diagnostic Imaging Report ---
C-SPINE 2 VIEWS AP LATERAL HISTORY: Postsurgical cervical spine COMPARISON: 11/06/2017 FINDINGS: Bones: No displaced fracture. Again, patient is status post revision and second cervical spine fusion. An marginal fusion of C3-C5 and new fusion from C5 and C6 anteriorly are noted. Osseous alignment is within normal limits. Joints: The joint spaces are well-maintained. Soft tissues: The soft tissues appear unremarkable. IMPRESSION: No acute radiographic abnormality. Anterior cervical spine fusion with new C5-6 anterior plate and screws with intervertebral disc spacer in good position. Signed by: Dr. Robert Velez M.D. on 11/08/2017 6:42 AM
[2017-11-08] MEDS ORDERED: GLIPIZIDE 5 MG TAB PO SCH (07:30)
[2017-11-08 08:07] VITALS: BP 143/81
[2017-11-08] MEDS: METFORMIN HCL 500 MG TAB PO SCH (08:21)
[2017-11-08] MEDS: GABAPENTIN 300 MG CAP PO SCH (08:21)
[2017-11-08] MEDS: CARISOPRODOL 350 MG TAB PO PRN (08:21)
[2017-11-08] MEDS: LISINOPRIL 10 MG TAB PO SCH (08:21)
[2017-11-08] MEDS: TAMSULOSIN HCL 0.4 MG CAP PO SCH (08:21)
[2017-11-08] MEDS: MUPIROCIN 2% OINT 22 GM TUBE TOP SCH (08:21)
[2017-11-08] MEDS: METOPROLOL SUCCINATE 50 MG TAB XL PO SCH (08:21)
[2017-11-08] MEDS: OXYCODONE/ACETAMINOPHEN 5-325 1 EACH TABLET PO PRN (08:21)
[2017-11-08 11:43] VITALS: BP 148/64
[2017-11-08] MEDS ORDERED: HYDROCODON-ACE1 EA12 PO (14:09)
--- NOTE | 2017-11-09 15:41 | Discharge Summary ---
CLINICAL HISTORY: This is a 67-year-old man, a patient of Dr. Naveen Samaniego, admitted via the emergency room because of syncope with possible head trauma. Please refer to my previous dictation concerning details of current illness, past medical history, personal and social history, family history, review of systems, physical examination, initial laboratory studies. HOSPITAL COURSE: The patient was seen by the emergency room physician initially without any neck workup. CT scan of the brain showed mild degenerative changes and small vessel white matter disease. CT scan of the face showed no fracture, status post fusion of the C3 to C5 area. MRI scan of the head showed small chronic left occipital insult with no acute ischemic changes. Carotid Doppler showed nonvisualized right vertebral artery. However, a 4-vessel CT angiogram was negative. The head CT scan was unremarkable. Cervical spine x-ray showed previous C5-6 fusion. Neurology consultation was obtained with Dr. Katharine Kasper, who felt that the patient had defect, which was chronic related to his diabetes. The defect was in the left eye. Otherwise, no focal neurologic findings were discovered. EEG was recommended. It was carried out showing no abnormalities. Medical treatment was recommended. Subsequently the MRI scan of the neck showed severe spinal cord compression. Neurosurgery consultation was obtained Dr. Agnes Stern who recommended immediate surgery, which was carried out without difficulty. Subsequent cervical spine x-ray showed the surgery at C5-6 level. The patient was monitored for 4 days without any cardiac arrhythmias. It was felt that EP study was not immediately necessary, but EP consultation was obtained with Dr. Mcknight since day 1; however, he was unable to come and see the patient. The patient will, therefore, try to go to his office on an outpatient basis. Echocardiogram was unremarkable. The patient did have enlarged left neck lymph nodes. He does have somewhat dilated aortic root at 3.8. His ejection fraction is 55%. With approval of neurology and neurosurgery, the patient is discharged to be followed on an outpatient basis. He will see Dr. Stern, Dr. Samaniego and ut in 1 week [address] see Dr[address] Mcknight in 1 week. DISCHARGE DIAGNOSES 1. Syncope of undetermined etiology with no cardiac arrhythmia detected with 4 days of monitoring and with normal left ventricular ejection fraction, making cardiac arrhythmia somewhat unlikely. The patient may consider an outpatient electrophysiology consultation since Dr. Mcknight was unable to see the patient in the hospital. 2. Severe spinal cord compression with successful surgery at C5-6 with previous surgery at C3-5. 3. Two previous transient ischemic attack attacks 2 years ago and 1 year ago, the first with left-sided weakness and the second with right-sided weakness. Workup in the emergency room on the second transient ischemic attack a year ago was negative. 4. Previous cervical spine fracture as documented above treated at [facility] approximately 3 years ago. 5. Diplopia due to left defect possibly due to diabetes. 6. Vertigo. 7. Abnormal electrocardiogram showing old anterior wall myocardial infarction. 8. Dilated aortic root at 3.8 cm. 9. Enlarged left neck lymph nodes of undetermined significance. 10. Elevated creatine kinase myocardial band with normal troponin possibly due to muscle trauma. 11. Diabetes. 12. Hypertension. 13. Hyperlipidemia. 14. Benign prostatic hypertrophy. This patient will receive outpatient rehabilitation, home health and home rehab. It is recommended he avoid alcohol, even though he had no alcoholic cardiomyopathy. XIOMARA VALERIO MD Job#: [id number] cc: MD AGNES SHIELDS MD COURTNEY M. PRESTON, M.D. JOSE CUELLAR-SILVA, MD
== END 2017-11-08 14:52 | disposition home or self-care (01) | DRG 982 ==
LOC: ER 14:25 → ERHOLD 19:30 → IMCU 20:52 → OBSVTOIN 11-06 13:34 → MED/SURG3 11-06 16:59 → IMCU 11-06 17:01 → MED/SURG3 11-06 17:20 → MED/SURG2 11-07 03:49 → MED/SURG 11-07 13:28
PROVIDERS: ADMIT Internal Medicine Cardiovascular Disease; ATTEND Internal Medicine Cardiovascular Disease
PROC: 0RG10K0 Fusion of Cervical Vertebral Joint with Nonautologous Tissue Substitute, Anterior Approach, Anterior Column, Open Approach (ICD-10-PCS; principal; 2017-11-06)
PROC: 0RT30ZZ Resection of Cervical Vertebral Disc, Open Approach (ICD-10-PCS; 2017-11-06)
PROC: 00NW0ZZ Release Cervical Spinal Cord, Open Approach (ICD-10-PCS; 2017-11-06)
DX: R55 Syncope and collapse (principal); M50.022 Cervical disc disorder at C5-C6 level with myelopathy; G95.89 Other specified diseases of spinal cord; H53.2 Diplopia; R42 Dizziness and giddiness; E78.5 Hyperlipidemia, unspecified; D29.1 Benign neoplasm of prostate; G62.9 Polyneuropathy, unspecified; Z86.73 Personal history of transient ischemic attack (TIA), and cerebral infarction without residual deficits; E11.319 Type 2 diabetes mellitus with unspecified diabetic retinopathy without macular edema; Z79.4 Long term (current) use of insulin; I25.2 Old myocardial infarction; I77.819 Aortic ectasia, unspecified site; R59.0 Localized enlarged lymph nodes; N40.0 Benign prostatic hyperplasia without lower urinary tract symptoms; Z98.1 Arthrodesis status
CPT/HCPCS: 36415; 70450; 70486; 70496; 70498; 70551; 72040; 72125; 72141; 77003; 80048; 80053; 80061; 82270; 82550; 82553; 82948; 83036; 83540; 84466; 84484; 85025; 85610; 85730; 86850; 86900; 88304; 93005; 93306; 93880; 94640; 95812; 97139; 99284; C1713; C9359; G0378; J0690; J1100; J2001; J2270; J2405; J7030; J7120; Q9967

== ENCOUNTER 2017-12-17 16:36 | Outpatient (RCR) | payer MEDICARE ==
[~2017-12-17 16:36] MED LIST changes: +HYDROCODON-ACE1 EA12 PO; +TRESIBA
== END 2017-12-20 ==
LOC: PT 16:36
PROVIDERS: ATTEND Neurological Surgery
DX: M50.022 Cervical disc disorder at C5-C6 level with myelopathy (principal); M53.82 Other specified dorsopathies, cervical region; R26.2 Difficulty in walking, not elsewhere classified; M62.81 Muscle weakness (generalized); M25.551 Pain in right hip
CPT/HCPCS: 97110 ×5; 97112; 97139; 97162; G8978; G8979

== ENCOUNTER 2017-12-24 16:47 | Outpatient (RCR) | payer MEDICARE | END 2018-01-19 | LOC: PT 16:47 | PROVIDERS: ATTEND Neurological Surgery | DX: M50.022 Cervical disc disorder at C5-C6 level with myelopathy (principal); M54.2 Cervicalgia; M53.82 Other specified dorsopathies, cervical region; M25.551 Pain in right hip; R26.2 Difficulty in walking, not elsewhere classified; M62.81 Muscle weakness (generalized) | CPT/HCPCS: 97110; G8979; G8980 ==

== ENCOUNTER 2018-03-10 14:07 | Inpatient (IN) | payer MEDICARE ==
[~2018-03-10] VITALS: Ht 172.7 cm; Wt 122.3 kg
[~2018-03-10 14:07] MED LIST changes: -TRESIBA; +TRESIBA SQ
[2018-03-10] MEDS ORDERED: SODIUM CHLORIDE 0.9% 1000ML 1,000 ML IV STA (15:36)
[2018-03-10 16:07] LABS: BASOPHILS % 0.3 % (0.0-1.0); EOSINOPHILS # (AUTO) 0.3 (0.0-0.4); EOSINOPHILS % 3.7 % (0.0-6.0); HEMATOCRIT 39.3 % (38.2-49.6); HEMOGLOBIN 13.5 g/dL (14.0-18.0); LYMPHOCYTES % 34.3 % (18.0-39.1); MEAN CORPUSCULAR HEMOGLOBIN 31.5 pg (28-32); MEAN CORPUSCULAR HGB CONC 34.4 g/dL (31-35); MEAN CORPUSCULAR VOLUME 91.8 fL (81-99); MONOCYTES # (AUTO) 0.8 (0.2-0.8); MONOCYTES % 8.6 % (4.4-11.3); NEUTROPHILS # (AUTO) 4.7 (2.1-6.9); PLATELET COUNT 234 x10e3/uL (140-360); RED BLOOD COUNT 4.28 x10e6/uL (4.3-5.7); RED CELL DISTRIBUTION WIDTH 12.4 % (11.7-14.4)
[2018-03-10 16:10] LABS: INR 0.89; PROTHROMBIN TIME 12.9 seconds (11.9-14.5)
[2018-03-10 16:11] LABS: PARTIAL THROMBOPLASTIN TIME 28.1 seconds (23.8-35.5)
[2018-03-10 16:18] LABS: ALANINE AMINOTRANSFERASE 26 IU/L (0-55); ALBUMIN 3.4 g/dL (3.5-5.0); ALBUMIN/GLOBULIN RATIO 0.9 (0.8-2.0); ALKALINE PHOSPHATASE 107 IU/L (40-150); ANION GAP 17.5 mmol/L (8-16); BLOOD UREA NITROGEN 23 mg/dL (7-26); BUN/CREATININE RATIO 21 (6-25); CALCIUM 9.4 mg/dL (8.4-10.2); CARBON DIOXIDE 26 mmol/L (22-29); CHLORIDE 102 mmol/L (98-107); CREATINE KINASE 212 IU/L (30-200); EST GLOMERULAR FILTRATION RATE > 60 ML/MIN (60-); GLUCOSE 198 mg/dL (74-118); MAGNESIUM 2.4 MG/DL (1.3-2.1); SODIUM 140 mmol/L (136-145)
[2018-03-10 16:21] LABS: POTASSIUM 5.5 mmol/L (3.5-5.1)
--- NOTE | 2018-03-10 16:33 | Diagnostic Imaging Report ---
CT BRAIN WO HISTORY: Dizziness COMPARISON: MRI of the brain 11/05/2017, head CT 11/04/2017 TECHNIQUE: Noncontrast axial scans were obtained from skull base to the vertex. Coronal and sagittal reconstructions obtained from the axial data. One or more of the following dose reduction techniques were used: Automated exposure control, adjustment of the mA and/or kV according to patient size, and/or utilization of iterative reconstruction technique. Beam hardening artifacts obscure some details. DISCUSSION: Scalp/Skull: Unremarkable. Brain sulci: Mild prominent. Ventricles: Mild compensatory dilatation. Extra-axial spaces: No masses or fluid collections. Carotid siphon calcifications are present. Parenchyma: Mild periventricular white matter hypodensities are likely chronic microvascular ischemic changes. There is an old small left occipital pole cortical infarct. Otherwise, no masses, hemorrhage, or large vascular territory acute infarct. Dural sinuses: No abnormal densities. Sellar/Suprasellar region: Intact. Skull base: Intact. IMPRESSION: 1. No acute intracranial abnormalities. 2. Old small left occipital pole cortical infarct. 3. Mild supratentorial chronic microvascular ischemic change. Mild generalized cerebral volume loss. Signed by: Dr. Kev Webster M.D. on 03/10/2018 4:30 PM
[2018-03-10] MEDS ORDERED: PIPERACILLIN/TAZO 4.5 GM 100 ML IV STA (16:43)
[2018-03-10] MEDS ORDERED: CLINDAMYCIN 300MG 50 ML IV STA (16:43)
[2018-03-10] MEDS ORDERED: TRESIBA SQ (17:14)
--- NOTE | 2018-03-10 17:16 | Diagnostic Imaging Report ---
EXAM: XR CHEST 1 VIEW DATE: 03/10/2018 3:36 PM INDICATION: Fall COMPARISON: None FINDINGS: Lines and Tubes: None Heart and Mediastinum: No acute cardiomediastinal findings. Lungs and Pleura: Body habitus, low lung volumes, underpenetration limit evaluation. Minimal opacities in the lung bases statistically represent atelectasis, however, infectious process could have a similar appearance. Bones and Soft Tissues: No acute findings. IMPRESSION: 1. Within limitations, no definite acute finding. Signed by: Dr. Jem Lee MD on 03/10/2018 5:13 PM
[2018-03-10 19:06] LABS: CLARITY,URINE CLEAR (CLEAR); COLOR,URINE YELLOW (YELLOW); LEUKOCYTE ESTERASE ,URINE NEGATIVE (NEGATIVE); NITRITE,URINE NEGATIVE (NEGATIVE); PROTEIN,URINE DIPSTICK TRACE (NEGATIVE)
[2018-03-10 19:07] LABS: BILIRUBIN,URINE NEGATIVE (NEGATIVE); KETONES,URINE NEGATIVE (NEGATIVE); URINE UROBILINOGEN 0.2 mg/dL (0.2 - 1)
[2018-03-10 19:20] LABS: BACTERIA,URINE FEW /HPF; EPITHELIAL CELLS,URINE RARE /LPF; RBC,URINE 0-5 /HPF (0-5)
[2018-03-10] MEDS ORDERED: NEOMYCIN/POLYMYX/BACITR OINT 0.9 GM PKT TOP ONE (20:45)
[2018-03-10 21:22] LABS: ANION GAP 14.1 mmol/L (8-16); BLOOD UREA NITROGEN 22 mg/dL (7-26); BUN/CREATININE RATIO 22 (6-25); CALCIUM 8.7 mg/dL (8.4-10.2); CARBON DIOXIDE 23 mmol/L (22-29); CHLORIDE 104 mmol/L (98-107); CREATININE, SERUM 0.98 mg/dL (0.72-1.25); EST GLOMERULAR FILTRATION RATE > 60 ML/MIN (60-); GLUCOSE 198 mg/dL (74-118); POTASSIUM 4.1 mmol/L (3.5-5.1); SODIUM 137 mmol/L (136-145)
[2018-03-10] MEDS: VANCOMYCIN 1GM/NS 250 ML 250 ML IV SCH (21:28)
[2018-03-10] MEDS ORDERED: DEXTROSE 50% SYRINGE 50 ML IV PRN (22:00)
[2018-03-10] MEDS ORDERED: ACETAMINOPHEN 325 MG TAB PO PRN (22:00)
[2018-03-10] MEDS ORDERED: ATORVASTATIN 20 MG TAB PO PRN (22:00)
[2018-03-10] MEDS ORDERED: HYDRALAZINE HCL 20 MG/ML VIAL IV PRN (22:00)
[2018-03-10] MEDS ORDERED: HYDROMORPHONE 1MG/1ML INJ IV PRN (22:00)
[2018-03-10] MEDS: SODIUM CHLORIDE 0.9% 1000ML 1,000 ML IV SCH (23:15)
[2018-03-10 23:45] VITALS: BP 146/66
[2018-03-11] VITALS (10 sets, daily range): BP systolic 136–160; BP diastolic 63–76
[2018-03-11] MEDS: PIPER-TAZ 3.375 GM 50 ML IV SCH ×4 (00:19→22:50)
[2018-03-11] MEDS ORDERED: MECLIZINE HCL12.5 MG PO (00:56)
[2018-03-11] MEDS ORDERED: LOVASTATIN40 MG PO (00:56)
[2018-03-11] MEDS: ONDANSETRON HCL INJ 2 MG/ML VIAL IV PRN (03:55)
[2018-03-11] MEDS: HYDROMORPHONE 2MG/ML 2 MG/ML ML IV PRN (03:55)
[2018-03-11 05:09] LABS: BASOPHILS % 0.3 % (0.0-1.0); EOSINOPHILS # (AUTO) 0.4 (0.0-0.4); HEMATOCRIT 37.3 % (38.2-49.6); HEMOGLOBIN 12.4 g/dL (14.0-18.0); LYMPHOCYTES # (AUTO) 3.5 (1.0-3.2); LYMPHOCYTES % 38.3 % (18.0-39.1); MEAN CORPUSCULAR HEMOGLOBIN 30.2 pg (28-32); MEAN CORPUSCULAR HGB CONC 33.2 g/dL (31-35); MONOCYTES # (AUTO) 0.8 (0.2-0.8); MONOCYTES % 8.6 % (4.4-11.3); NEUTROPHILS # (AUTO) 4.4 (2.1-6.9); NEUTROPHILS % 48.6 % (38.7-80.0); PLATELET COUNT 196 x10e3/uL (140-360); RED CELL DISTRIBUTION WIDTH 12.3 % (11.7-14.4)
[2018-03-11 05:48] LABS: ALANINE AMINOTRANSFERASE 20 IU/L (0-55); ALBUMIN 3.1 g/dL (3.5-5.0); ALBUMIN/GLOBULIN RATIO 1.1 (0.8-2.0); ALKALINE PHOSPHATASE 90 IU/L (40-150); ANION GAP 11.5 mmol/L (8-16); BLOOD UREA NITROGEN 15 mg/dL (7-26); BUN/CREATININE RATIO 17 (6-25); CARBON DIOXIDE 26 mmol/L (22-29); CHLORIDE 107 mmol/L (98-107); CREATININE, SERUM 0.86 mg/dL (0.72-1.25); EST GLOMERULAR FILTRATION RATE > 60 ML/MIN (60-); GLUCOSE 113 mg/dL (74-118); POTASSIUM 4.5 mmol/L (3.5-5.1); SODIUM 140 mmol/L (136-145)
[2018-03-11] MEDS: SODIUM CHLORIDE 0.9% 1000ML 1,000 ML IV SCH (06:20)
[2018-03-11] MEDS: INSULIN REGULAR, HUMAN 100 UNIT/1 ML 3ML VIAL SQ SCH ×4 (07:30→21:20)
[2018-03-11] MEDS: GABAPENTIN 300 MG CAP PO SCH ×3 (08:49→21:20)
[2018-03-11] MEDS: VANCOMYCIN 1GM/NS 250 ML 250 ML IV SCH ×2 (08:49→21:20)
[2018-03-11] MEDS: METOPROLOL SUCCINATE 50 MG TAB XL PO SCH (08:50)
[2018-03-11] MEDS ORDERED: LISINOPRIL 10 MG TAB PO SCH (09:00)
[2018-03-11] MEDS ORDERED: MECLIZINE HCL 12.5 MG TAB PO PRN ×2 (11:00→19:30)
[2018-03-11] MEDS ORDERED: HYDROCODONE/APAP 7.5MG-325MG 1 EA TAB PO PRN (11:00)
[2018-03-11] MEDS ORDERED: DOXYCYCLINE HY100 MG PO (11:14)
--- NOTE | 2018-03-11 12:49 | History and Physical ---
CLINICAL HISTORY: This is a 68-year-old man known to me from previous evaluation, a patient of Dr. Naveen Samaniego who was admitted via the emergency room because of cellulitis. This patient was hospitalized in October of this year with syncope, head trauma, fracturing his neck, requiring C5-[address] Jaciel Stern. At that time he had complained of vertigo and was seen by Dr. Katharine Kasper. She was also seen by Dr. Brian Mcknight for evaluation of his syncope. Following discharge, he has been following with Dr. Naveen Samaniego, apparently has had no further syncopal spells. He presented to the emergency room with right leg blistering and with cellulitis in the right leg. Apparently the blistering has been going on for several weeks. White count was normal. He has no fever. He is being admitted for intravenous antibiotics. He also complained of vertigo. There is history of diplopia, diabetes, hypertension, obesity, TIA. Medications at home included Tresiba subcutaneous a.c., gabapentin 300 mg p.o. t.i.d., glipizide 5 mg p.o. daily, hydrocodone 7.5 mg q.4 h. p.r.n., lisinopril 10 mg p.o. daily, losartan 40 mg p.o. daily, metformin 500 mg p.o. daily, metoprolol succinate 50 mg daily. FAMILY HISTORY: Father had stomach cancer. Mother had end-stage renal disease. Brother from motor vehicle accident. Another brother had back surgery and was in a wheelchair for many years, possibly from a cardiac . PERSONAL AND SOCIAL HISTORY: A cigarette smoker since age 19, stopped smoking approximately 15 years ago. He was a heavy alcohol user starting at age 19, drinking 1 case of beer per day but stopped drinking approximately 15 years ago. 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 REVIEW OF SYSTEMS: Remarkable for chronic back pains causing him to have to walk with a walker. PAST SURGERIES: Included 2 cervical spine surgeries mentioned above. PHYSICAL EXAMINATION GENERAL: He is obese, alert, coherent. Appears to be comfortable. He has to move around with a walker. CARDIAC: Jugular veins are not distended. S1 and S2 are regular. There are no appreciable murmurs. LUNGS: Clear. ABDOMEN: Soft. Bowel sounds are present. EXTREMITIES: Show no cyanosis, clubbing or edema. LABORATORY STUDIES: White count 9100, hemoglobin 12.4, platelet count 196,000. BUN is 15, creatinine 0.66, bicarb 26, sodium 140, potassium 4.5. IMPRESSION 1. Right leg cellulitis, relatively minor. 2. Vertigo, apparently chronic. 3. History of syncope and fall, fracturing his neck, requiring surgery in October of this year. 4. History of 2 previous transient ischemic attacks 2 years ago and 1 year ago. 5. Left-sided weakness and right-sided weakness previously from the transient ischemic attack, apparently improved. 6. Diplopia. 7. Possible old myocardial infarction by electrocardiogram. However, previous echocardiogram showed normal ejection fraction at 55%. 8. Venous stasis. 9. Diabetes. 10. Hypertension. 11. Hyperlipidemia. 12. Neuropathy. 13. Benign prostatic hypertrophy. RECOMMENDATION: ENT and neurology evaluation for diplopia and vertigo. Intravenous antibiotic and infectious disease consultation. Rehabilitation. Physical therapy. Job#: [id number] EV cc:MD VIANEY BARRIENTOS MD RAMON A. PINEDA, MD COURTNEY M. PRESTON, M.D.
--- NOTE | 2018-03-11 13:11 | Consultation ---
DATE OF CONSULTATION: March 11, 2018 INFECTIOUS DISEASE CONSULTATION ATTENDING PHYSICIAN: Dany Leos MD REASON FOR CONSULTATION: Right leg cellulitis. Thank you, Dr. Leos, for asking me to see this patient. HISTORY: The patient is a 68-year-old man referred for right leg cellulitis. He presented to the emergency department with vertigo for 3 days. He describes the sensation as everything rotating. He denies nausea, vomiting, fever, and recent upper respiratory tract infection. He has had recurrent cellulitis of both legs for at least 6 months, which he attributes to arthritis and NSAIDs he has been taking. Also, he reports bilateral leg swelling, which he also attributes to arthritis and lack of exercise. In the emergency department, he was noted to have temperature of 97.3 degrees Fahrenheit, pulse rate 78, respiratory rate 20, blood pressure 155/74 and oxygen saturation 94% on room air. Initial laboratory studies showed blood leukocyte count of 8870 with 53% neutrophils and blood glucose 212. Brain CT scan showed no acute finding. Also, chest x-ray showed no acute finding. PAST MEDICAL HISTORY: Diabetes mellitus type 2 with neuropathy, hypertension, hyperlipidemia, coronary artery disease status post angioplasty, and vertigo. PAST SURGICAL HISTORY: Neck surgery and back surgery. ALLERGIES: NO KNOWN DRUG ALLERGIES. MEDICATIONS: See MAR. The current antibiotics are Zosyn 3.375 grams IV piggyback q.8 h. and vancomycin 1 gram IV piggyback q.12 h. IMMUNIZATIONS: He received influenza and pneumococcal vaccination about 2 weeks ago. Also, he received tetanus-diphtheria vaccine about 2 weeks ago. FAMILY HISTORY: Significant for diabetes mellitus, hypertension and heart disease. SOCIAL HISTORY: He quit smoking cigarettes and drinking alcohol many years ago. He denies recreational drug use. REVIEW OF SYSTEMS: As per history of present illness. PHYSICAL EXAMINATION VITAL SIGNS: T-max 98.4, pulse rate 73, respiratory rate 18, blood pressure 138/63, weight 269 pounds. GENERAL: No acute distress, but the patient felt wobbly when he tried to get up. HEENT: Normocephalic. There is no icterus or injection of conjunctivae. There is no ear or nasal discharge. Moist oral mucosa. No pharyngeal erythema or exudate. NECK: Supple. No lymphadenopathy or meningismus. LUNGS: Good air entry bilaterally. HEART: Normal S1 and S2. Regular. ABDOMEN: Soft and nontender. EXTREMITIES: There are multiple erosions of the right lower extremity especially on the calf. There are multiple scabs and erosions of the left leg as well. There is mild erythema of the calf with serous drainage. There is 2+ edema of the legs bilaterally. The dorsalis pedis and posterior tibial pulses are weak to palpation in both feet. SKIN: As per extremities. ATHLETIC TRAINER: Awake, alert and oriented to person, place and time. There is decreased sensation to monofilament test in both feet. Nonfocal. LABORATORY AND DIAGNOSTICS: WBC 9160; hemoglobin 12.4; platelets 196,000; neutrophils 48.6, lymphs 38.3, monos 8.6, eosinophils 4.0, basophils 0.3. BUN 15, creatinine 0.86. Blood glucose 126. AST 16, ALT 20, alk phos 90, total bilirubin 0.4. Blood culture was collected for unknown indication. IMPRESSION 1. Right leg cellulitis present on admission. 2. Tinea cruris. 3. Venous insufficiency. 4. Diabetes mellitus, type 2, with peripheral neuropathy. 5. Vertigo. PLAN 1. Check lower extremity venous Doppler ultrasound. 2. Patient may need ENT consultation. 3. Start clotrimazole cream for tinea cruris. Job#: [id number] JACQUELYN BERNSTEIN
--- NOTE | 2018-03-11 15:59 | Consultation ---
DATE OF CONSULTATION: March 11, 2018 NEUROLOGY CONSULT NOTE HISTORY OF PRESENT ILLNESS: Mr. Ma is a 68-year-old rbxyk-hvjk-whlypchn man with past medical history significant for hypertension, hyperlipidemia, diabetes mellitus, and coronary artery disease, admitted to [facility] on March 10, 2018 with vertigo. Beginning 2 to 3 days prior to admission, the patient began to experience dizziness which is further described as a vertiginous sensation. The sensation is intermittent and is exacerbated by movement (turning quickly, standing up too quickly). When present, the vertigo lasts for a few seconds and is associated with blurred vision. Mr. Ma does not report nausea or vomiting associated with the vertigo. He does not report ear pain or pressure, discharge, or tinnitus. The patient does not report a visual field defect, or other disturbance, dysarthria, aphasia, facial droop, hemiparesis, jose ramon hypesthesia, or confusion. He does report gait and balance impairment which he attributes to the vertigo. Mr. Ma has not experienced similar symptoms previously. After the symptoms persisted for a few days, the patient presented to the Emergency Center at [facility] for further evaluation of his symptoms. Upon arrival in the Emergency Center, the patient was afebrile with a blood pressure 155/74 mmHg and pulse of 78 beats per minute. His neurological examination was documented as being nonfocal. While in the Emergency Center, a CT of the brain was performed. There was no evidence of recent large territorial ischemia or hemorrhage on this study. However, the patient was noted to have a chronic small ischemic stroke in the left occipital lobe. While in the Emergency Center, the patient was noted to have cellulitis with an ulceration over the distal right foreleg. Therefore, Mr. Ma was admitted to [facility] on March 10, 2018 for further evaluation and treatment of vertigo as well as left lower extremity cellulitis. REVIEW OF SYSTEMS: Joint pain, blurred vision, dizziness further described as a vertiginous sensation, right leg infection. Otherwise the 12 point review of systems is negative. PAST MEDICAL HISTORY: Hypertension, hyperlipidemia, diabetes mellitus complicated by peripheral neuropathy, coronary artery disease, osteoarthritis, bilateral cataracts. PAST SURGICAL HISTORY: Cardiac stents placed in 2000, cervical spine surgery times 2. PAST HOSPITALIZATIONS: Surgeries/procedures as listed. FAMILY MEDICAL HISTORY: The patient's paternal and maternal grandparents are . Their medical histories are unknown. The patient's father is from stomach cancer. His mother is from complications of diabetes mellitus. Mr. Ma has 7 siblings who are alive, 1 brother and 6 sisters. The brother has diabetes mellitus and end-stage renal disease. The sister's medical histories are unknown. Mr. Ma has 2 brothers who are . The first is from a motor vehicle accident. The second as a result of complications from diabetes mellitus. Mr. Ma has five children, 2 sons and 3 daughters, all of whom are living. All of his children have diabetes mellitus. His youngest son has end-stage renal disease as well. SOCIAL HISTORY: Patient is a . He is retired. Mr. Ma quit smoking cigarettes and drinking alcohol in 2000. He does not endorse current or prior recreational drug use. HOME MEDICATIONS: Doxycycline 100 mg by mouth twice daily, gabapentin 300 mg by mouth three times daily, glipizide 5 mg by mouth twice daily, hydrocodone acetaminophen 1 tablet by mouth every 6 hours as needed for pain, lisinopril 25 mg by mouth daily, lovastatin 40 mg by mouth at bedtime daily, meclizine 25 mg by mouth every 6 hours as needed for dizziness, metformin 1000 mg by mouth twice daily, metoprolol 50 mg by mouth at bedtime daily, Tresiba. ALLERGIES: NO KNOWN DRUG ALLERGIES. NO KNOWN FOOD ALLERGIES. NO KNOWN ALLERGIES TO LATEX. NO KNOWN ALLERGIES TO IODINE OR OTHER CONTRAST MATERIALS. PHYSICAL EXAMINATION: VITAL SIGNS: Height 68 inches, weight 269 pounds, BMI 40.9 kg per meter squared. Blood pressure 158/63 mmHg. Pulse 73 beats per minute. Respiratory rate 18 breaths per minute. Oxygen saturation 95% on room air. GENERAL: The patient is awake and alert. Does not appear distressed. Morbidly obese. HEENT: Normocephalic and atraumatic. Pupils are equal, round and reactive to light. Moist mucous membranes. NECK: Supple. No appreciable thyromegaly. No appreciable carotid bruits. CARDIOVASCULAR: S1 and S2. Regular rate and rhythm. No murmurs, rubs or gallops. RESPIRATORY: Clear to auscultation bilaterally. No wheezes, rhonchi or rales. EXTREMITIES: The skin is warm and dry. No clubbing, cyanosis or edema. The posterior tibial and dorsalis pedis pulses are trace and symmetric. SKIN: The right distal foreleg is wrapped in gauze. There are abrasions over the left foreleg. There are venous stasis ulcerations over the distal forelegs. NEUROLOGIC: Memory/attention: The patient is awake and alert. Oriented to person, place, time, and situation. CRANIAL NERVES: Cranial nerve I: Not tested. Cranial nerves II, III, IV, : Pupils are equal and round, react briskly to light (from 4 mm to 2 mm). Extraocular movements intact. No nystagmus. Cranial nerve V: Sensation to light touch and pinprick is intact in the bilateral V1 through V3 distributions. Strength of the temporalis and masseter muscles is within normal limits. Cranial nerve VII: The face is symmetric, as are all facial movements. Strength is within normal limits. Cranial nerve VIII: Hearing is intact to finger rub bilaterally. Cranial nerve IX and X: The soft palate elevates equally and symmetrically. Cranial nerve XI: Normal strength of the bilateral sternocleidomastoid and trapezius muscles. Cranial nerve XII: The tongue protrudes midline and moves symmetrically from side to side. STRENGTH: Bulk is normal, and strength is 5/5 in the bilateral deltoids, biceps, triceps, wrist flexors and extensors, finger flexors and extensors, intrinsic hand muscles, hip flexors, knee flexors and extensors, ankle dorsiflexion and plantar flexion, and intrinsic foot muscles. Tone is normal. DTRs: Deep tendon reflexes are 1+ and symmetric at the triceps, biceps, and brachioradialis. Deep tendon reflexes are absent and symmetric at the Patellas, and Achilles. Plantar responses are flexor bilaterally. SENSATION: Intact to light touch and pinprick in both arms and both legs. However, the patient states the pin prick feels "soft" over the arms and legs. CEREBELLAR: Gcqhtr-uoea-jeykdn movements are intact without dysmetria or other impairment. Possible dysmetria of the right arm. The patient cannot perform heel-ellis movements secondary to pain. GAIT: Deferred. SPEECH: Spontaneous speech is normal without appreciable dysarthria or aphasia. Repetition is intact. INVOLUNTARY MOVEMENTS: None. PRONATOR DRIFT: None. LABORATORY DATA: The most recent comprehensive metabolic panel is significant for a total protein 6.0 and albumin of 3.1. Lactic acid 20.7, 7.0. B-natriuretic peptide 34.8. Creatine kinase 212. CK-MB 7.60. Troponin I 0.005. The CBC with differential and platelets reveals a white blood cell count of 9.16 with a normal differential. The hemoglobin and hematocrit are 12.4 and 37.3, respectively. The platelet count is 196. PT, PTT, and INR are within normal limits. A urinalysis was significant for trace protein and trace blood. Blood cultures were drawn on March 10, 2018 and are pending. DIAGNOSTIC STUDIES: Electrocardiogram 03/10/2018: Normal sinus rhythm at 76 beats per minute. Chest x-ray 03/10/2018: Within limitations, no definite acute finding. CT of brain without contrast on 03/10/2018: On my review, there is no evidence of recent large territorial ischemia, hemorrhage, mass, or mass effect. A remote ischemic stroke is seen in the left occipital lobe. There is diffuse cerebral atrophy with compensatory dilatation of the ventricles, more than expected for the patient's age. There are findings compatible with mild to moderate chronic small vessel ischemic disease. Echocardiogram 11/05/2017: Ejection fraction 55%. Left ventricular hypertrophy. Trace mitral and tricuspid regurgitation. ASSESSMENT AND PLAN: Mr. Ma is a 68-year-old cqgmu-ngrl-khvwylhy man with multiple vascular risk factors admitted to [facility] on March 10, 2018 with intermittent vertigo for the past 2 to 3 days. The patient's neurological examination is nonfocal, but there are findings compatible with his known diagnosis of peripheral neuropathy. Mr. Ma's laboratory data and other diagnostic studies have been reviewed and are documented above. In my opinion, the patient's description of his symptoms is most compatible with diagnosis of benign paroxysmal positional vertigo. Due to severity of the vertiginous sensation, Mr. Ma was unable to participate in [place]-Hallpike maneuvers which would have confirmed the diagnosis of benign paroxysmal positional vertigo as well as identified which year is affected. However, this being said, the patient does have multiple vascular risk factors placing him at high risk for a stroke. Based on his symptoms, the stroke would have occurred in the posterior circulation. Posterior circulation strokes are not always apparent on CT imaging. Therefore, recommendations are as follows: RECOMMENDATIONS: 1. MRI of the brain without contrast will be ordered to evaluate for posterior circulation stroke. 2. Continue treatment with meclizine 25 mg by mouth every 6 hours as needed for vertigo. Consider referral to physical therapy for vestibular exercises as an outpatient if the MRI images are negative for stroke. 3. Defer treatment of the remaining medical comorbidities to the primary and other services at this time. Thank you for this consultation. I will continue to follow the patient while he remains in the hospital. Time spent: 70 minutes. Job#: [id number]
[2018-03-11] MEDS ORDERED: CLOTRIMAZOLE 1% CR 15 GM TOP SCH (17:00)
[2018-03-11] MEDS: METFORMIN HCL 500 MG TAB PO SCH (17:52)
[2018-03-11] MEDS: GLIPIZIDE 5 MG TAB PO SCH (17:52)
[2018-03-11] MEDS ORDERED: SIMVASTATIN 20 MG TAB PO SCH (21:00)
[2018-03-11] MEDS ORDERED: SIMVASTATIN 40 MG TAB PO SCH (21:00)
[2018-03-11] MEDS ORDERED: TRESIBA 100 UNIT SC SCH (21:00)
--- NOTE | 2018-03-11 21:21 | Consultation ---
DATE OF CONSULTATION: March 11, 2018 HISTORY OF PRESENT ILLNESS: I was kindly asked to see this pleasant 68-year-old man for evaluation of "vertigo." Patient reports that 3 days prior to admission, he was sitting down and drinking coffee and had this sudden onset of a true cessation of motion with the room spinning around him. He reports the episode lasted for approximately 1 minute. Since that time, he continues to have episodes of true hallucination of motion which is associated with head position changes as well as orthostatic changes and rolling over in bed. The episodes over the last day or 2 have been relatively unchanged and occur with either ear down and not associated with nausea or vomiting. He reports no tinnitus, but has had a 3- to 6-month history of decreased hearing in his right ear. He denies ear fullness. He has a complicated medical and surgical history which includes 2 previous C-spine procedures. PHYSICAL EXAMINATION: The tympanic membranes are injected. The auditory canals are normal. Nasal examination is unremarkable. He has a long soft palate with redundant folds of hypopharyngeal mucosa and a large base of tongue. There is no palpable cervical adenopathy. ASSESSMENT: Probable benign positional vertigo complicated by significant cervical spine disease making Baron-Hallpike maneuver difficult. PLAN: 1. No additional inpatient therapy indicated. 2. Patient has used meclizine in the past for treatment of dizziness with modest improvement and I have ordered the meclizine for palliative care until definitive diagnosis and treatment can be performed. 1. Outpatient evaluation and possible treatment based on clinical course. As there is a high rate of spontaneous resolution of the benign positional vertigo and he is at greater than usual risk due to this C-spine disease, I would be conservative in recommending diagnostic or treatment maneuvers at this time. Job#: [id number] REBECCA
[2018-03-12] VITALS: BP 177/75
[2018-03-12 04:00] VITALS: BP 126/66
[2018-03-12] MEDS: ONDANSETRON HCL INJ 2 MG/ML VIAL IV PRN (04:31)
[2018-03-12] MEDS: HYDROMORPHONE 2MG/ML 2 MG/ML ML IV PRN (04:31)
[2018-03-12] MEDS: PIPER-TAZ 3.375 GM 50 ML IV SCH (05:58)
--- NOTE | 2018-03-12 07:17 | Diagnostic Imaging Report ---
Exam: Brain MRI without IV contrast History: Vertigo, posterior circulation stroke. Comparison studies: Brain MRI 11/05/2017. Head CTs 03/10/2018 and 11/04/2017. Technique: Sagittal and axial T2 FS, axial DWI, axial T2*GRE, axial T1 FLAIR and axial coronal T2 FLAIR. Intravenous contrast: None Findings: Several pulse sequences are somewhat limited artifacts related to patient motion. In spite of this limitation: Scalp: Normal in signal. No masses. Bone marrow: Normal in signal intensity. Brain sulci: Mildly prominent. Ventricles: Mild compensatory dilatation. No hydrocephalus. Extra axial spaces: No mass, no fluid collection. Parenchyma: No mass, hemorrhage or acute ischemia. Unchanged small chronic left occipital cortical/subcortical insult. A few T2 FLAIR hyperintense foci in the supratentorial white matter are nonspecific but most compatible with chronic microvascular ischemic changes. Suprasellar region: No abnormalities. Craniocervical junction: Patent foramen magnum. No Chiari malformation. Vessels: Normal flow-voids in the arteries and sinuses. Incidental findings: Mild chronic inflammatory changes at the mastoid tips. IMPRESSION: 1. No acute ischemia or other acute intracranial abnormalities. 2. No changes from the previous brain MRI of 11/05/2017. 3. Mild generalized volume loss. 4. Mild chronic microvascular ischemic changes. 5. Small chronic left occipital infarct. Signed by: Dr. Jose Ocampo M.D. on 03/12/2018 7:14 AM
[2018-03-12] MEDS: INSULIN REGULAR, HUMAN 100 UNIT/1 ML 3ML VIAL SQ SCH (07:30)
[2018-03-12] MEDS ORDERED: TRESIBA 100 UNIT SC SCH (07:30)
[2018-03-12 08:21] VITALS: BP 157/71
[2018-03-12] MEDS: METFORMIN HCL 500 MG TAB PO SCH (08:50)
[2018-03-12] MEDS: GABAPENTIN 300 MG CAP PO SCH (08:50)
[2018-03-12] MEDS: METOPROLOL SUCCINATE 50 MG TAB XL PO SCH (08:50)
[2018-03-12] MEDS: GLIPIZIDE 5 MG TAB PO SCH (08:50)
[2018-03-12] MEDS ORDERED: COLLAGENASE OINTMENT 30 GM TUBE TP SCH (09:00)
[2018-03-12] MEDS ORDERED: LISINOPRIL 20 MG TAB PO SCH (09:00)
[2018-03-12] MEDS: VANCOMYCIN 1GM/NS 250 ML 250 ML IV SCH (10:02)
[2018-03-12 11:14] VITALS: BP 109/55
--- NOTE | 2018-03-12 11:32 | Cardiology Report ---
DATE OF STUDY: March 11, 2018 DOPPLER SCAN OF LOWER EXTREMITY VEINS The lower extremity veins were interrogated using the duplex scanning method. The veins were compressible. There was no definite deep venous thrombosis. CONCLUSION: No definite deep venous thrombosis involving the lower extremity veins bilaterally. Job#: [id number] cc:MD ELIEZER SHIELDS MD
--- NOTE | 2018-03-12 16:23 | Discharge Summary ---
PRIMARY CARE PHYSICIAN: Naveen Samaniego MD CLINICAL HISTORY: This is a 68-year-old white man admitted via the emergency room because of cellulitis and instability on his feet, which apparently is a chronic condition. Please refer to my previous dictation concerning details of current illness, past medical history, personal and social history, family history, review of systems, physical examination and initial laboratory studies. HOSPITAL COURSE: The patient had no syncopal episodes. He was seen in consultation by infectious disease websphere consultant, Dr. Pepe Bonner, who felt his cellulitis is relatively minor and does not require intravenous antibiotics in the hospital. He prescribed doxycycline. For his complaint of chronic vertigo, he was seen in consultation by ENT physician, Dr. Juice Vides, who felt the patient does not need to be hospitalized for this condition and can continue his meclizine on outpatient basis. Additionally, the patient was seen by neurology, Dr. Kasper, who did an MRI scan of the head to rule out posterior circulation pathology, but the MRI was unchanged compared to 11/05/2017. The patient was seen by physical therapy and was able to ambulate. It was felt he is stable for discharge and will be followed on an outpatient basis with Dr. Juice Vides, Dr. Kasper and Dr. Naveen Samaniego. DISCHARGE DIAGNOSES: The same as on admission. DISCHARGE MEDICATIONS: The same. The patient was provided a walker if he needs it. During this hospitalization, the patient did have a chest x-ray, which showed no acute findings. Lab results showed mild anemia, hemoglobin 12.4. Vancomycin trough was elevated at 10.5. Urinalysis was negative. INR was satisfactory. Electrolytes were satisfactory. Albumin 3.1. Lactic level was 28.7, and this was borderline elevated. XIOMARA VALERIO MD Job#: [id number] cc:MD VIANEY SHIELDS MD COURTNEY M. PRESTON, M.D. MAURICE E. AKUCHIE, MD
[2018-03-12] MEDS ORDERED: ENOXAPARIN SOD INJ 40 MG/0.4 ML SYR SC SCH (21:00)
[2018-03-12] MEDS ORDERED: ENOXAPARIN SOD INJ 60 MG/0.6 ML SYR SC SCH (21:00)
== END 2018-03-12 13:20 | disposition home or self-care (01) | DRG 603 ==
LOC: ER 14:07 → ERHOLD 22:17 → MED/SURG 23:42
PROVIDERS: ADMIT Internal Medicine Cardiovascular Disease; ATTEND Internal Medicine Cardiovascular Disease
DX: L03.115 Cellulitis of right lower limb (principal); H81.10 Benign paroxysmal vertigo, unspecified ear; E87.5 Hyperkalemia; B35.6 Tinea cruris; I10 Essential (primary) hypertension; E11.42 Type 2 diabetes mellitus with diabetic polyneuropathy; E78.5 Hyperlipidemia, unspecified; Z98.61 Coronary angioplasty status; Z79.4 Long term (current) use of insulin; Z87.891 Personal history of nicotine dependence; Z83.3 Family history of diabetes mellitus; Z82.49 Family history of ischemic heart disease and other diseases of the circulatory system; Z80.0 Family history of malignant neoplasm of digestive organs; Z84.1 Family history of disorders of kidney and ureter; Z86.73 Personal history of transient ischemic attack (TIA), and cerebral infarction without residual deficits; H53.2 Diplopia; I87.8 Other specified disorders of veins; N40.0 Benign prostatic hyperplasia without lower urinary tract symptoms; G89.29 Other chronic pain
CPT/HCPCS: 36415; 70450; 70551; 71045; 80048; 80053; 80202; 81001; 82550; 82553; 82948; 83605; 83735; 83880; 84484; 85025; 85610; 85730; 87040; 93005; 93970; 99284; J2405; J2543; J3370; J7030

== ENCOUNTER 2018-05-08 08:35 | Emergency (ER) | payer MEDICARE ==
[~2018-05-08] VITALS: Ht 172.7 cm; Wt 128.8 kg
[~2018-05-08 08:35] MED LIST changes: +DOXYCYCLINE HY100 MG PO; +LOVASTATIN40 MG PO; +MECLIZINE HCL12.5 MG PO
[2018-05-08] MEDS ORDERED: LISINOPRIL-HCT1 EAC1 PO (08:55)
[2018-05-08] MEDS ORDERED: FUROSEMIDE40 MG PO (08:55)
[2018-05-08] MEDS ORDERED: KETOROLAC TROMETHAMINE 60 MG/2 ML VIAL IM ONE (09:00)
--- NOTE | 2018-05-08 10:35 | Diagnostic Imaging Report ---
History: Fall Comparison studies:MRI of the brain 03/11/2018 Technique: Axial images were obtained from the brain and cervical spine. Coronal and sagittal images reconstructed from the axial data. Intravenous contrast: None Dose modulation, iterative reconstruction, and/or weight based adjustment of the mA/kV was utilized to reduce the radiation dose to as low as reasonably achievable. Findings: Head CT: Scalp/skull: No abnormalities. No fractures, blastic or lytic lesions. Brain sulci: Mildly prominent. Ventricles: Mildly prominent. No hydrocephalus. Extra-axial spaces: No masses. No fluid collections. Parenchyma: Few white matter hypodensities, better seen on previous MR. No masses, hemorrhage, acute or chronic cortical vascular insults. Sellar/suprasellar region: No abnormalities. Craniocervical junction: Patent foramen magnum. No Chiari one malformation. Cervical spine CT: Fractures: None. Soft tissues: No gross abnormalities. Anterior fusion with plate and screws and intervertebral spacers from C3 through C5. Endplate and intervertebral fusion at C5-6. No complication Atlantoaxial articulation: No acute abnormality. Alignment: Normal lordosis. No scoliosis. Cervicomedullary junction: No abnormalities. Patent foramen magnum. Vertebrae: No infection or neoplasm. Degenerative changes: At C2-3, disc osteophyte complex and bilateral uncinate process and facet hypertrophy results in no significant canal stenosis and mild bilateral foraminal narrowing. At C3-4, disc osteophyte complex, bilateral uncinate process hypertrophy and facet hypertrophy results in mild canal stenosis, mild right and moderate left foraminal narrowing. At C4-5, disc osteophyte complex, bilateral uncinate process and facet hypertrophy results in moderate canal stenosis, severe right and mild left foraminal narrowing. At C5-6, bilateral uncinate processes and facet hypertrophy results in moderate bilateral foraminal narrowing in mild canal stenosis. At C6-7, disc osteophyte complex and bilateral uncinate process hypertrophy results in mild canal stenosis and mild bilateral foraminal narrowing. At C7-T1, left uncinate process and facet hypertrophy results in moderate left foraminal narrowing. Incidental findings: Atherosclerotic calcifications of the aortic arch and branches.. Impression: Head CT: 1. No acute intracranial abnormality. 2. Mild chronic microvascular ischemic changes are seen in previous brain MR. Cervical spine CT: 1. No acute abnormalities. Degenerative and surgical changes of the cervical spine as described above. 2. Cannot exclude ligament, spinal cord and or vascular abnormalities on the basis of this examination. Signed by: DR Amrit Bobo M.D. on 05/08/2018 10:32 AM
[2018-05-08] MEDS ORDERED: ULTRAM50 MG PO (10:40)
--- NOTE | 2018-05-08 10:41 | NUR ---
hard c-collar removed after ok from [facility].
== END 2018-05-08 10:59 | disposition home or self-care (01) ==
LOC: ER 08:35
DX: S00.83XA Contusion of other part of head, initial encounter (principal); M54.2 Cervicalgia; S16.1XXA Strain of muscle, fascia and tendon at neck level, initial encounter; M47.812 Spondylosis without myelopathy or radiculopathy, cervical region; W01.0XXA Fall on same level from slipping, tripping and stumbling without subsequent striking against object, initial encounter; Y92.008 Other place in unspecified non-institutional (private) residence as the place of occurrence of the external cause; I10 Essential (primary) hypertension; E11.9 Type 2 diabetes mellitus without complications; E78.5 Hyperlipidemia, unspecified
CPT/HCPCS: 70450; 72125; 99284; J1885